=== PATIENT | male | born 1985 | race Caucasian/White ===

== ENCOUNTER 2018-03-02 11:51 | Emergency (ER) | payer BC ==
[2018-03-02] MEDS ORDERED: NA CHLORIDE 0.9% 1,000 ML ONE (12:48)
[2018-03-02] MEDS ORDERED: MORPHINE 4 MG/ML SYR ONE ×2 (12:48→14:26)
[2018-03-02] MEDS ORDERED: ONDANSETRON 4 MG/2 ML VIAL ONE (12:48)
[2018-03-02 12:56] LABS: Absolute Lymphocytes (CBC) 0.9 K/uL (0.7-4.9); Absolute Monocytes 1.2 K/uL (0.1-1.3); Absolute Neutrophil 15.1 K/uL (1.8-8.0); Basophils % 0.1 % (0-1.3); Hematocrit 44.9 % (39.6-49.0); Lymphocytes % 5.3 % (15.3-44.8); MPV 8.6 fL (7.6-11.3); Monocytes % 6.7 % (3.3-12.3); RBC Red Blood Cell Count 5.36 M/uL (4.33-5.43)
[2018-03-02 13:00] LABS: Protime INR 1.07
--- NOTE | 2018-03-02 13:16 | RAD REPORT ---
EXAM DESCRIPTION: Rustam Lawson (2 Views)03/02/2018 1:10 pm CLINICAL HISTORY: Cough COMPARISON: None FINDINGS: The lungs appear clear of acute infiltrate. The heart is normal size IMPRESSION: No acute abnormalities displayed
[2018-03-02 13:21] LABS: ALT/SGPT 70 U/L (12-78); AST/SGOT 32 U/L (15-37); Albumin 4.2 g/dL (3.4-5.0); Alkaline Phosphatase 78 U/L (45-117); BUN Blood Urea Nitrogen 11 mg/dL (7-18); Bicarbonate 27 mmol/L (21-32); Bilirubin Direct 0.1 mg/dL (0-0.2); Bilirubin Total 0.4 mg/dL (0.2-1.0); Glucose Level 113 mg/dL (74-106); Magnesium 1.8 mg/dL (1.8-2.4); NT PRO-BNP 16 pg/mL (<125); Potassium 4.4 mmol/L (3.5-5.1); Protein, Total 7.4 g/dL (6.4-8.2); Sodium Level 140 mmol/L (136-145); Troponin (Emerg Dept Use Only) < 0.02 ng/mL (0.0-0.045)
--- NOTE | 2018-03-02 15:28 | EDPHYS ---
Physician Documentation [facility] Name: Leroy Andersen Age: 32 yrs Sex: Male : 1985 Arrival Date: 03/02/2018 Time: 11:54 Bed 23 Private MD: ED Physician Sang Brock HPI: 03/02 13:00 This 32 yrs old Male presents to ER via Ambulatory with complaints of Chest pm1 Pain. 13:00 The patient or guardian reports chest pain that is located primarily in the anterior pm1 chest wall, bilaterally. The pain does not radiate. 13:00 Associated signs and symptoms: Pertinent negatives: abdominal pain, headache, shortness pm1 of breath. The chest pain is described as burning. Duration: The patient or guardian reports a single episode. Modifying factors: The symptoms are alleviated by nothing. the symptoms are aggravated by nothing. The patient has not experienced similar symptoms in the past. The patient has been recently seen by a physician: Dr. Cerna - pain management. Patient was under general anesthesia and was prone getting injections to his back by Dr. Addison. They told him that he vomited twice and they were concerned that he might have aspirated his vomit. Was given breathing treatment and Toradol in recovery. Historical: - Allergies: 12:15 No Known Allergies; hj - Home Meds: 12:15 hydrocodone-acetaminophen 2.5-500 mg Oral tab 1 tab every 4-6 hours [Active]; Flexeril hj Oral [Active]; - PMHx: 12:15 Back pain; hj - PSHx: 12:15 Knee surgery; hj - Immunization history:: Adult Immunizations up to date. - Social history:: Smoking status: Patient/guardian denies using tobacco, Patient/guardian denies using alcohol. - Ebola Screening: : Patient negative for fever greater than or equal to 101.5 degrees Fahrenheit, and additional compatible Ebola Virus Disease symptoms Patient denies exposure to infectious person Patient denies travel to an Ebola-affected area in the 21 days before illness onset. ROS: 13:00 Constitutional: Negative for fever, chills, and weight loss, Eyes: Negative for injury, pm1 pain, redness, and discharge, ENT: Negative for injury, pain, and discharge, Neck: Negative for injury, pain, and swelling. 13:00 Respiratory: Negative for shortness of breath, cough, wheezing, and pleuritic chest pain, Abdomen/GI: Negative for abdominal pain, nausea, vomiting, diarrhea, and constipation, Back: Negative for injury and pain, : Negative for injury, bleeding, discharge, and swelling, MS/Extremity: Negative for injury and deformity, Skin: Negative for injury, rash, and discoloration, Neuro: Negative for headache, weakness, numbness, tingling, and seizure. 13:00 Cardiovascular: Positive for chest pain, Negative for edema, palpitations. Exam: 13:00 Constitutional: This is a well developed, well nourished patient who is awake, alert, pm1 and in no acute distress. Head/Face: Normocephalic, atraumatic. Eyes: Pupils equal round and reactive to light, extra-ocular motions intact. Lids and lashes normal. Conjunctiva and sclera are non-icteric and not injected. Cornea within normal limits. Periorbital areas with no swelling, redness, or edema. ENT: Nares patent. No nasal discharge, no septal abnormalities noted. Tympanic membranes are normal and external auditory canals are clear. Oropharynx with no redness, swelling, or masses, exudates, or evidence of obstruction, uvula midline. Mucous membranes moist. Neck: Trachea midline, no thyromegaly or masses palpated, and no cervical lymphadenopathy. Supple, full range of motion without nuchal rigidity, or vertebral point tenderness. No Meningismus. Chest/axilla: Normal chest wall appearance and motion. Nontender with no deformity. No lesions are appreciated. Cardiovascular: Regular rate and rhythm with a normal S1 and S2. No gallops, murmurs, or rubs. Normal PMI, no JVD. No pulse deficits. Respiratory: Lungs have equal breath sounds bilaterally, clear to auscultation and percussion. No rales, rhonchi or wheezes noted. No increased work of breathing, no retractions or nasal flaring. Abdomen/GI: Soft, non-tender, with normal bowel sounds. No distension or tympany. No guarding or rebound. No evidence of tenderness throughout. Back: No spinal tenderness. No costovertebral tenderness. Full range of motion. Skin: Warm, dry with normal turgor. Normal color with no rashes, no lesions, and no evidence of cellulitis. 13:00 MS/ Extremity: Pulses equal, no cyanosis. Neurovascular intact. Full, normal range of motion. 13:00 Neuro: Orientation: is normal, Motor: is normal, moves all fours. Vital Signs: 12:16 BP 144 / 94; Pulse 115; Resp 18; Temp 98.5(O); Pulse Ox 99% on R/A; Weight 90.72 kg; hj Height 5 ft. 10 in. (177.80 cm); Pain 4/10; 13:10 Pain 5/10; tw2 13:16 BP 127 / 84; Pulse 88; Resp 17; Pulse Ox 95% on R/A; Pain 5/10; tw2 14:13 BP 130 / 89; Pulse 91; Resp 19; Pulse Ox 98% on R/A; tw2 15:12 BP 135 / 97; Pulse 94; Resp 18; Pulse Ox 95% on R/A; tw2 12:16 Body Mass Index 28.70 (90.72 kg, 177.80 cm) hj MDM: 12:33 Patient medically screened. pm1 15:24 ED course: Prescribed Levaquin by Dr. Cerna. pm1 15:27 Data reviewed: vital signs. Data interpreted: Pulse oximetry: on room air is 95 %. pm1 Interpretation: normal. Counseling: I had a detailed discussion with the patient and/or guardian regarding: the historical points, exam findings, and any diagnostic results supporting the discharge/admit diagnosis, lab results, radiology results, the need for outpatient follow up, to return to the emergency department if symptoms worsen or persist or if there are any questions or concerns that arise at home. 03/02 12:32 Order name: Basic Metabolic Panel; Complete Time: 13:33 pm1 03/02 12:32 Order name: CBC with Diff; Complete Time: 13:18 pm1 03/02 12:32 Order name: LFT's; Complete Time: 13:33 pm1 03/02 12:32 Order name: Magnesium; Complete Time: 13:33 pm03/02 12:32 Order name: NT PRO-BNP; Complete Time: 13:33 pm1 03/02 12:32 Order name: PT-INR; Complete Time: 13:18 pm03/02 12:32 Order name: Chest Pa And Lat (2 Views) XRAY; Complete Time: 13:18 pm03/02 12:32 Order name: Troponin (emerg Dept Use Only); Complete Time: 13:33 pm03/02 12:35 Order name: Blood Culture Adult (2) pm1 03/02 11:59 Order name: EKG; Complete Time: 12:00 hj 03/02 12:32 Order name: Cardiac monitoring; Complete Time: 13:16 pm03/02 12:32 Order name: EKG - Nurse/Tech; Complete Time: 13:16 pm03/02 12:32 Order name: IV Saline Lock; Complete Time: 13:16 pm03/02 12:32 Order name: Labs collected and sent; Complete Time: 13:16 pm03/02 12:32 Order name: O2 Per Protocol; Complete Time: 13:16 pm03/02 12:32 Order name: O2 Sat Monitoring; Complete Time: 13:16 pm1 Administered Medications: 12:35 Drug: Zofran 4 mg Route: IVP; Site: left antecubital; tw2 14:39 Follow up: Response: No adverse reaction tw2 12:35 Drug: NS 0.9% 1000 ml Route: IV; Rate: 1000 ml; Site: left antecubital; tw2 14:39 Follow up: Response: No adverse reaction; IV Status: Completed infusion; IV Intake: tw2 1000ml 12:37 Drug: morphine 4 mg Route: IVP; Site: left antecubital; tw2 13:10 Follow up: Pain 5/10 Adult; Response: No adverse reaction; Pain is decreased tw2 14:20 Drug: morphine 4 mg Route: IVP; Site: left antecubital; tw2 15:00 Follow up: Response: No adverse reaction; Pain is decreased tw2 Disposition: 03/02/18 15:28 Discharged to Home. Impression: Chest pain, unspecified. - Condition is Stable. - Discharge Instructions: Nonspecific Chest Pain. - Medication Reconciliation Form, Thank You Letter, Antibiotic Education, Prescription Opioid Use, Work release form form. - Follow up: Emergency Department; When: As needed; Reason: Worsening of condition. Follow up: Private Physician; When: 2 - 3 days; Reason: Recheck today's complaints, Continuance of care, Re-evaluation by your physician. - Problem is new. - Symptoms have improved. Addendum: 03/15/2018 07:30 Co-signature as Attending Physician, Sang Brock MD I agree with the assessment and k dr plan of care. Signatures: Dispatcher [employer] [facility] Sang Brock MD MD [facility] Luan Parker, RN RN hj Ezequiel De Luna, ROLLER PRINTER ROLLER PRINTER pm1 Jeri Rivas RN RN tw2 Corrections: (The following items were deleted from the chart) 03/02 12:53 12:17 Chest Single View+RAD.RAD.BRZ ordered. [facility] EDMN 12:54 12:33 Chest Single View+RAD.RAD.BRZ ordered. [facility] EDMN 15:36 15:28 03/02/2018 15:28 Discharged to Home. Impression: Chest pain, unspecified. tw2 Condition is Stable. Forms are Work release form, Medication Reconciliation Form, Thank You Letter, Antibiotic Education, Prescription Opioid Use. Follow up: Emergency Department; When: As needed; Reason: Worsening of condition. Follow up: Private Physician; When: 2 - 3 days; Reason: Recheck today's complaints, Continuance of care, Re-evaluation by your physician. Problem is new. Symptoms have improved. pm1
--- NOTE | 2018-03-02 15:28 | ER ---
Nurse's Notes [facility] Name: Leroy Andersen Age: 32 yrs Sex: Male : 1985 Arrival Date: 03/02/2018 Time: 11:54 Bed 23 Private MD: Diagnosis: Chest pain, unspecified Presentation: 03/02 12:12 Presenting complaint: Patient states: went to Dr. Addison pain doctor and put me to sleep for back injection, they told me i vomited x 2 and aspirated on my vomit; and now my chest cavity is aching; they sent me here for chest xray; felt like my breathing is wheezy;. Transition of care: patient was not received from another setting of care. Onset of symptoms was March 02, 2018. Risk Assessment: Do you want to hurt yourself or someone else? Patient reports no desire to harm self or others. Initial Sepsis Screen: Does the patient meet any 2 criteria? No. Patient's initial sepsis screen is negative. Does the patient have a suspected source of infection? No. Patient's initial sepsis screen is negative. Care prior to arrival: None. 12:12 Method Of Arrival: Ambulatory 12:12 Acuity: CHERYL 3 Triage Assessment: 12:15 General: Appears in no apparent distress. uncomfortable, Behavior is calm, cooperative, hj appropriate for age. Pain:. Cardiovascular: Capillary refill < 3 seconds Patient's skin is warm and dry. Historical: - Allergies: 12:15 No Known Allergies; hj - Home Meds: 12:15 hydrocodone-acetaminophen 2.5-500 mg Oral tab 1 tab every 4-6 hours [Active]; Flexeril hj Oral [Active]; - PMHx: 12:15 Back pain; hj - PSHx: 12:15 Knee surgery; hj - Immunization history:: Adult Immunizations up to date. - Social history:: Smoking status: Patient/guardian denies using tobacco, Patient/guardian denies using alcohol. - Ebola Screening: : Patient negative for fever greater than or equal to 101.5 degrees Fahrenheit, and additional compatible Ebola Virus Disease symptoms Patient denies exposure to infectious person Patient denies travel to an Ebola-affected area in the 21 days before illness onset. Screenin:16 Abuse screen: Denies threats or abuse. Denies injuries from another. Nutritional hj screening: No deficits noted. Tuberculosis screening: No symptoms or risk factors identified. Fall Risk None identified. Assessment: 12:16 Pain: Pain does not radiate. Pain began suddenly. hj 12:22 General: Appears in no apparent distress. Behavior is calm, cooperative, appropriate tw2 for age. Pain: Complains of pain in chest. Neuro: Level of Consciousness is awake, alert, obeys commands, Oriented to person, place, time, situation. Cardiovascular: Reports None Denies shortness of breath, Heart tones S1 S2 Patient's skin is warm and dry. Respiratory: Reports aspirating after an injection procedure where they put him to sleep in order to inject him for pain, he woke up choking, they gave him a breathing treatment and toradol for pain in the iv but the pain is still there. Respiratory: Airway is patent Respiratory effort is even, unlabored, Respiratory pattern is regular, symmetrical, Breath sounds are clear bilaterally. GI: No signs and/or symptoms were reported involving the gastrointestinal system. : No signs and/or symptoms were reported regarding the genitourinary system. EENT: No signs and/or symptoms were reported regarding the EENT system. Derm: No signs and/or symptoms reported regarding the dermatologic system. Skin is intact, is healthy with good turgor, Skin is pink, warm \T\ dry. Skin temperature is warm. Musculoskeletal: Range of motion: intact in all extremities. 13:16 Reassessment: Patient appears in no apparent distress at this time. No changes from tw2 previously documented assessment. Patient and/or family updated on plan of care and expected duration. Pain level reassessed. Patient is alert, oriented x 3, equal unlabored respirations, skin warm/dry/pink. 14:14 Reassessment: Patient appears in no apparent distress at this time. No changes from tw2 previously documented assessment. Patient and/or family updated on plan of care and expected duration. Pain level reassessed. Patient is alert, oriented x 3, equal unlabored respirations, skin warm/dry/pink. 15:13 Reassessment: Patient appears in no apparent distress at this time. No changes from tw2 previously documented assessment. Patient and/or family updated on plan of care and expected duration. Pain level reassessed. Patient is alert, oriented x 3, equal unlabored respirations, skin warm/dry/pink. 15:34 Reassessment: Patient appears in no apparent distress at this time. No changes from tw2 previously documented assessment. Patient and/or family updated on plan of care and expected duration. Pain level reassessed. Patient is alert, oriented x 3, equal unlabored respirations, skin warm/dry/pink. Vital Signs: 12:16 BP 144 / 94; Pulse 115; Resp 18; Temp 98.5(O); Pulse Ox 99% on R/A; Weight 90.72 kg; hj Height 5 ft. 10 in. (177.80 cm); Pain 4/10; 13:10 Pain 5/10; tw2 13:16 BP 127 / 84; Pulse 88; Resp 17; Pulse Ox 95% on R/A; Pain 5/10; tw2 14:13 BP 130 / 89; Pulse 91; Resp 19; Pulse Ox 98% on R/A; tw2 15:12 BP 135 / 97; Pulse 94; Resp 18; Pulse Ox 95% on R/A; tw2 12:16 Body Mass Index 28.70 (90.72 kg, 177.80 cm) ED Course: 11:54 Patient arrived in ED. mr 12:03 EKG done, by technology consultant. reviewed by Sang Brock MD. at1 12:14 Triage completed. hj 12:16 Arm band placed on right wrist. hj 12:16 Patient has correct armband on for positive identification. Placed in gown. Bed in low hj position. Call light in reach. Side rails up X 1. 12:16 environmental field office manager on. Pulse ox on. NIBP on. hj 12:16 Patient maintains SpO2 saturation greater than 95% on room air. hj 12:26 Ezequiel De Luna, CRISTAL is PHCP. pm1 12:26 Sang Brock MD is Attending Physician. pm1 12:36 Inserted saline lock: 20 gauge in right antecubital area, using aseptic technique. tw2 Blood collected. 12:56 Jeri Rivas, XOCHILT is Primary Nurse. tw2 13:00 Patient moved to radiology via wheelchair. jb2 13:07 X-ray completed. Patient tolerated procedure well. Patient moved back from radiology. jb2 13:07 Chest Pa And Lat (2 Views) XRAY In Process Unspecified. EDMS 13:16 Blood Culture Adult (2) Sent. tw2 15:34 No provider procedures requiring assistance completed. IV discontinued, intact, tw2 bleeding controlled, No redness/swelling at site. Pressure dressing applied. Administered Medications: 12:35 Drug: Zofran 4 mg Route: IVP; Site: left antecubital; tw2 14:39 Follow up: Response: No adverse reaction tw2 12:35 Drug: NS 0.9% 1000 ml Route: IV; Rate: 1000 ml; Site: left antecubital; tw2 14:39 Follow up: Response: No adverse reaction; IV Status: Completed infusion; IV Intake: tw2 1000ml 12:37 Drug: morphine 4 mg Route: IVP; Site: left antecubital; tw2 13:10 Follow up: Pain 5/10 Adult; Response: No adverse reaction; Pain is decreased tw2 14:20 Drug: morphine 4 mg Route: IVP; Site: left antecubital; tw2 15:00 Follow up: Response: No adverse reaction; Pain is decreased tw2 Intake: 14:39 IV: 1000ml; Total: 1000ml. tw2 Outcome: 15:28 Discharge ordered by . pm1 15:35 Discharged to home ambulatory, with significant other. tw2 15:35 Condition: stable 15:35 Discharge instructions given to patient, significant other, Instructed on discharge instructions, follow up and referral plans. Demonstrated understanding of instructions, follow-up care. 15:36 Patient left the ED. tw2 Signatures: Dispatcher [employer] [facility] Berenice Lopez, Kwesi jb2 Alicia Villaseñor, convalescent sitter EKG Tat1 Luan Parker, Ezequiel Velez RN, NP ENDOCRINOLOGY SPECIALIST pm1 Jeri Rivas RN RN tw2
--- NOTE | 2018-03-03 13:58 | EKG ---
Test Date: 2018-03-02 Test Time: 12:03:59 Benefits Specialist Recruiter: AP MEASUREMENT RESULTS: Intervals: Rate: 114 OH: 124 QRSD: 86 QT: 324 QTc: 446 [place]: P: 29 OH: 124 QRS: 63 T: 30 INTERPRETIVE STATEMENTS: Sinus tachycardia Otherwise normal ECG No previous ECG available for comparison Electronically Signed On 03-03-18 13:54:16 OPTICAL SCIENTIST by Royer Quarles
== END 2018-03-02 15:36 | disposition home or self-care (01) ==
LOC: ER 11:51
DX: R07.9 Chest pain, unspecified (principal)
CPT/HCPCS: 36415; 71046; 80048; 80076; 83735; 83880; 84484; 85025; 85610; 87040; 93005; 96361; 96374; 96375; 99285; J2405; J7030

== ENCOUNTER 2018-11-15 07:27 | Emergency (ER) | payer BC, OTHER ==
[2018-11-15] MEDS ORDERED: ONDANSETRON 4 MG/2 ML VIAL ONE (07:59)
[2018-11-15] MEDS ORDERED: NA CHLORIDE 0.9% 1,000 ML ONE (07:59)
[2018-11-15] MEDS ORDERED: MORPHINE 4 MG/ML SYR ONE (07:59)
[2018-11-15] MEDS ORDERED: FAMOTIDINE 20 MG/2 ML VIAL IV ONE (08:00)
[2018-11-15 08:05] LABS: Absolute Lymphocytes (CBC) 3.1 K/uL (0.7-4.9); Basophils % 0.5 % (0-1.3); Hematocrit 41.7 % (39.6-49.0); Lymphocytes % 40.3 % (15.3-44.8); MPV 8.7 fL (7.6-11.3); RBC Red Blood Cell Count 5.01 M/uL (4.33-5.43)
--- NOTE | 2018-11-15 08:19 | RAD REPORT ---
EXAM DESCRIPTION: US - Abdomen Exam Limited - 11/15/2018 8:07 am CLINICAL HISTORY: ABD PAIN COMPARISON: No comparisons FINDINGS: The gallbladder demonstrates no gallstones. No pericholecystic fluid or gallbladder wall t hickening. The common bile duct is normal measuring 3 mm. The liver demonstrates no findings of intrahepatic biliary dilatation. IMPRESSION: Unremarkable examination.
[2018-11-15 08:25] LABS: ALT/SGPT 63 U/L (12-78); AST/SGOT 31 U/L (15-37); Albumin 4.1 g/dL (3.4-5.0); Alkaline Phosphatase 77 U/L (45-117); BUN Blood Urea Nitrogen 15 mg/dL (7-18); Bicarbonate 23 mmol/L (21-32); Bilirubin Direct < 0.1 mg/dL (0-0.2); Bilirubin Total 0.2 mg/dL (0.2-1.0); Glucose Level 146 mg/dL (74-106); Lipase 313 U/L (73-393); Potassium 3.7 mmol/L (3.5-5.1); Protein, Total 7.5 g/dL (6.4-8.2); Sodium Level 142 mmol/L (136-145)
--- NOTE | 2018-11-15 09:16 | RAD REPORT ---
EXAM DESCRIPTION: CTAbdomen Pelvis W Contrast - 11/15/2018 8:58 am CLINICAL HISTORY: Abdominal pain. ABD PAIN COMPARISON: Abdomen Exam Limited dated 11/15/2018 TECHNIQUE: Biphasic CT imaging of the abdomen and pelvis was performed with 100 ml non-ionic IV cont rast. All CT scans are performed using dose optimization technique as appropriate and may include automated exposure control or mA/KV adjustment according to patient size. FINDINGS: The lung bases are clear. The liver demonstrates diffuse fatty infiltration. The spleen, pancreas, adrenal glands and kidneys a re within normal limits. No bowel obstruction, free air, free fluid or abscess. The appendix is normal. No evidence of signi ficant lymphadenopathy. No suspicious bony findings. IMPRESSION: No acute intra-abdominal or pelvic finding.
[2018-11-15] MEDS ORDERED: KETOROLAC 30 MG/ML INJ ONE (09:58)
--- NOTE | 2018-11-15 11:06 | ER ---
Nurse's Notes [facility] Name: Leroy Andersen Age: 32 yrs Sex: Male : 1985 Arrival Date: 11/15/2018 Time: 07:29 Bed 5 Private MD: Diagnosis: Abdominal and pelvic pain;Upper abdominal pain, unspecified Presentation: 11/15 07:39 Presenting complaint: Patient states: RUQ pain for a few days, +diarrhea. Transition of iw care: patient was not received from another setting of care. Onset of symptoms was November 12, 2018. Risk Assessment: Do you want to hurt yourself or someone else? Patient reports no desire to harm self or others. Initial Sepsis Screen: Does the patient meet any 2 criteria? No. Patient's initial sepsis screen is negative. Does the patient have a suspected source of infection? No. Patient's initial sepsis screen is negative. Care prior to arrival: None. 07:39 Method Of Arrival: Ambulatory iw 07:39 Acuity: CHERYL 3 iw Historical: - Allergies: 07:43 No Known Allergies; iw - Home Meds: 07:43 hydrocodone-acetaminophen 2.5-500 mg Oral tab 1 tab every 4-6 hours [Active]; iw tizanidine oral oral [Active]; meloxicam oral oral [Active]; - PMHx: 07:43 Back pain; Degenerative disc disease; iw - PSHx: 07:43 Knee surgery; iw - Immunization history:: Adult Immunizations up to date. - Social history:: Smoking status: Patient/guardian denies using tobacco. - Ebola Screening: : Patient negative for fever greater than or equal to 101.5 degrees Fahrenheit, and additional compatible Ebola Virus Disease symptoms Patient denies exposure to infectious person Patient denies travel to an Ebola-affected area in the 21 days before illness onset No symptoms or risks identified at this time. Screenin:50 Abuse screen: Denies threats or abuse. Denies injuries from another. Nutritional sg screening: No deficits noted. Tuberculosis screening: No symptoms or risk factors identified. Never had TB. Fall Risk None identified. Assessment: 07:50 General: Appears well groomed, well developed, well nourished, Behavior is calm, sg cooperative, appropriate for age. Pain: Complains of pain in right lower quadrant and right upper quadrant Quality of pain is described as aching, tender. Neuro: Level of Consciousness is awake, alert, obeys commands, Oriented to person, place, time, Plastic Press Operator are equal bilaterally Moves all extremities. Full function Gait is steady, Speech is normal, Facial symmetry appears normal, Pupils are PERRLA. Cardiovascular: Heart tones S1 S2 present Patient's skin is warm and dry. Chest pain is denied. Respiratory: Airway is patent Respiratory effort is even, unlabored, Respiratory pattern is regular, symmetrical, Denies cough, shortness of breath labored breathing, pain with respiration. GI: Abdomen is round non-distended, Bowel sounds present X 4 quads. Abd is soft X 4 quads Abdomen is tender to palpation in right upper quadrant and right lower quadrant. GI: Reports lower abdominal pain, upper abdominal pain, diarrhea, bloody stool, nausea. : No signs and/or symptoms were reported regarding the genitourinary system. EENT: No signs and/or symptoms were reported regarding the EENT system. Derm: Skin is pink, warm \T\ dry. Musculoskeletal: Circulation, motion, and sensation intact. Range of motion: intact in all extremities, Swelling absent. Vital Signs: 07:43 BP 156 / 110; Pulse 103; Resp 18; Temp 97.7(TE); Pulse Ox 98% on R/A; Weight 90.72 kg; iw Height 5 ft. 10 in. (177.80 cm); Pain 5/10; 08:57 BP 174 / 117; Pulse 89; Resp 17; Pulse Ox 98% ; sv 09:30 BP 146 / 103; Pulse 94; Resp 16; Pulse Ox 98% ; sv 10:17 BP 144 / 104; Pulse 80; Resp 14; Pulse Ox 98% ; sv 07:43 Body Mass Index 28.70 (90.72 kg, 177.80 cm) iw ED Course: 07:28 Sang Brock MD is Attending Physician. kdr 07:29 Patient arrived in ED. am2 07:40 Triage completed. iw 07:46 Arm band placed on. iw 07:51 Initial lab(s) drawn, by me, sent to lab. Inserted saline lock: 20 gauge in right sg antecubital area, using aseptic technique. Blood collected. 07:56 Juan White, RN is Primary Nurse. sg 08:03 US Abdomen Limited In Process Unspecified. EDMS 08:59 CT Abd/Pelvis - IV Contrast Only In Process Unspecified. EDMS 11:20 No provider procedures requiring assistance completed. IV discontinued, intact, iw bleeding controlled, No redness/swelling at site. Pressure dressing applied. 11:21 Patient has correct armband on for positive identification. iw Administered Medications: 08:10 Drug: NS 0.9% 1000 ml Route: IV; Rate: 1 bolus; Site: right antecubital; sg 10:15 Follow up: Response: No adverse reaction; IV Status: Completed infusion; IV Intake: sg 1000ml 08:10 Drug: Zofran 4 mg Route: IVP; Site: right antecubital; sg 09:00 Follow up: Response: No adverse reaction; Nausea is decreased sg 08:10 Drug: Pepcid 20 mg Route: IVP; Site: right antecubital; sg 09:00 Follow up: Response: No adverse reaction sg 08:10 Drug: morphine 4 mg {Note: RASS +1.} Route: IVP; Site: right antecubital; sg 09:00 Follow up: Response: No adverse reaction; Pain is unchanged, physician notified; RASS: sg Alert and Calm (0) 10:10 Drug: TORadol - Ketorolac 15 mg Route: IVP; Site: right antecubital; sg 11:00 Follow up: Response: No adverse reaction; Pain is decreased sg Intake: 10:15 IV: 1000ml; Total: 1000ml. sg Outcome: 10:57 Discharge ordered by . kdr 11:20 Discharged to home ambulatory. iw 11:20 Condition: good 11:20 Discharge instructions given to patient, Instructed on discharge instructions, follow up and referral plans. medication usage, Demonstrated understanding of instructions, follow-up care, medications, Prescriptions given X 1. 11:21 Patient left the ED. iw Signatures: Dispatcher [employer] EDMS Katerine Bar RN RN sv Gay, Steven, RN RN sg Rittger, Kevin, MD MD kdr Williams, Irene, RN RN iw Moreno, Amanda am2 Corrections: (The following items were deleted from the chart) 07:47 07:43 Pulse 103bpm; Resp 18bpm; Pulse Ox 98% RA; Temp 97.7F Temporal; 90.72 kg; Height iw 5 ft. 10 in.; BMI: 28.7; Pain 5/10; iw
--- NOTE | 2018-11-15 11:07 | EDPHYS ---
Physician Documentation [facility] Name: Leroy Andersen Age: 32 yrs Sex: Male : 1985 Arrival Date: 11/15/2018 Time: 07:29 Bed 5 Private MD: ED Physician Sang Brock HPI: 11/15 07:45 This 32 yrs old Male presents to ER via Ambulatory with complaints of kdr Abdominal Pain. 07:45 The patient presents with abdominal pain in the right upper quadrant. Onset: The kdr symptoms/episode began/occurred gradually, 3 day(s) ago. The symptoms radiate to the right shoulder, right scapular area. Associated signs and symptoms: Pertinent positives:. The symptoms are described as achy. Modifying factors: The symptoms are alleviated by nothing, the symptoms are aggravated by breathing deeply, movement, pressure, walking. Severity of pain: At its worst the pain was mild moderate just prior to arrival, in the emergency department the pain is unchanged. The patient has not experienced similar symptoms in the past. The patient has not recently seen a physician. Historical: - Allergies: 07:43 No Known Allergies; iw - Home Meds: 07:43 hydrocodone-acetaminophen 2.5-500 mg Oral tab 1 tab every 4-6 hours [Active]; iw tizanidine oral oral [Active]; meloxicam oral oral [Active]; - PMHx: 07:43 Back pain; Degenerative disc disease; iw - PSHx: 07:43 Knee surgery; iw - Immunization history:: Adult Immunizations up to date. - Social history:: Smoking status: Patient/guardian denies using tobacco. - Ebola Screening: : Patient negative for fever greater than or equal to 101.5 degrees Fahrenheit, and additional compatible Ebola Virus Disease symptoms Patient denies exposure to infectious person Patient denies travel to an Ebola-affected area in the 21 days before illness onset No symptoms or risks identified at this time. ROS: 07:45 Constitutional: Negative for fever, chills, and weight loss, Eyes: Negative for injury, kdr pain, redness, and discharge, ENT: Negative for injury, pain, and discharge, Neck: Negative for injury, pain, and swelling, Cardiovascular: Negative for chest pain, palpitations, and edema, Respiratory: Negative for shortness of breath, cough, wheezing, and pleuritic chest pain, Back: Negative for injury and pain, : Negative for injury, bleeding, discharge, and swelling, MS/Extremity: Negative for injury and deformity, Skin: Negative for injury, rash, and discoloration, Neuro: Negative for headache, weakness, numbness, tingling, and seizure activity. Psych: Negative for depression, anxiety, suicide ideation, homicidal ideation, and hallucinations, Allergy/Immunology: Negative for hives, rash, and allergies, Endocrine: Negative for neck swelling, polydipsia, polyuria, polyphagia, and marked weight changes, Hematologic/Lymphatic: Negative for swollen nodes, abnormal bleeding, and unusual bruising. 07:45 Abdomen/GI: Positive for abdominal pain, nausea, rectal bleeding, Negative for black/tarry stool, bowel incontinence. Exam: 07:45 Constitutional: This is a well developed, well nourished patient who is awake, alert, kdr and in no acute distress. Head/Face: Normocephalic, atraumatic. Eyes: Pupils equal round and reactive to light, extra-ocular motions intact. Lids and lashes normal. Conjunctiva and sclera are non-icteric and not injected. Cornea within normal limits. Periorbital areas with no swelling, redness, or edema. Neck: Trachea midline, no thyromegaly or masses palpated, and no cervical lymphadenopathy. Supple, full range of motion without nuchal rigidity, or vertebral point tenderness. No Meningismus. Chest/axilla: Normal chest wall appearance and motion. Nontender with no deformity. No lesions are appreciated. Cardiovascular: Regular rate and rhythm with a normal S1 and S2. No gallops, murmurs, or rubs. Normal PMI, no JVD. No pulse deficits. Respiratory: Lungs have equal breath sounds bilaterally, clear to auscultation and percussion. No rales, rhonchi or wheezes noted. No increased work of breathing, no retractions or nasal flaring. Back: No spinal tenderness. No costovertebral tenderness. Full range of motion. Skin: Warm, dry with normal turgor. Normal color with no rashes, no lesions, and no evidence of cellulitis. MS/ Extremity: Pulses equal, no cyanosis. Neurovascular intact. Full, normal range of motion. Neuro: Awake and alert, GCS 15, oriented to person, place, time, and situation. Cranial nerves II-XII grossly intact. Motor strength 5/5 in all extremities. Sensory grossly intact. Cerebellar exam normal. Normal gait. Psych: Awake, alert, with orientation to person, place and time. Behavior, mood, and affect are within normal limits. 07:45 Abdomen/GI: Inspection: abdomen appears normal, Bowel sounds: active, diminished, in all quadrants, Palpation: moderate abdominal tenderness, in all quadrants, voluntary guarding, is elicited in the right upper quadrant, Indicators: McBurney's point is not tender, Pimentel's sign is positive, Rovsing's sign is negative, Obturator sign is negative, Psoas sign is negative. Vital Signs: 07:43 BP 156 / 110; Pulse 103; Resp 18; Temp 97.7(TE); Pulse Ox 98% on R/A; Weight 90.72 kg; iw Height 5 ft. 10 in. (177.80 cm); Pain 5/10; 08:57 BP 174 / 117; Pulse 89; Resp 17; Pulse Ox 98% ; sv 09:30 BP 146 / 103; Pulse 94; Resp 16; Pulse Ox 98% ; sv 10:17 BP 144 / 104; Pulse 80; Resp 14; Pulse Ox 98% ; sv 07:43 Body Mass Index 28.70 (90.72 kg, 177.80 cm) iw MDM: 10:57 Patient medically screened. kdr 11:00 Data reviewed: vital signs, nurses notes, lab test result(s), radiologic studies. kdr Counseling: I had a detailed discussion with the patient and/or guardian regarding: the historical points, exam findings, and any diagnostic results supporting the discharge/admit diagnosis, lab results, radiology results, the need for outpatient follow up. ED course: Pain was slightly improved but not resolved - still 5/10. The patient does not appear toxic or in any way acutely ill. His abdomen appears to still be tender in the RUQ. Given the length of time the patient has been experiencing these s/s, I would expect some aspect of the an underlying occult illness such as ischemic bowel or other similar problem to be evident in both lab abnormalities and CT findings. 11/15 07:42 Order name: Basic Metabolic Panel; Complete Time: 08:44 kdr 11/15 07:42 Order name: CBC with Diff; Complete Time: 08:44 kdr 11/15 07:42 Order name: Creatinine for Radiology; Complete Time: 08:44 kdr 11/15 07:42 Order name: Hepatic Function; Complete Time: 08:44 kdr 11/15 07:42 Order name: Lipase; Complete Time: 08:44 kdr 11/15 07:42 Order name: CT Abd/Pelvis - IV Contrast Only; Complete Time: 10:25 kdr 11/15 07:42 Order name: IV Saline Lock; Complete Time: 07:56 kdr 11/15 07:42 Order name: Labs collected and sent; Complete Time: 07:56 kdr 11/15 07:44 Order name: US Abdomen Limited; Complete Time: 08:44 kdr Administered Medications: 08:10 Drug: NS 0.9% 1000 ml Route: IV; Rate: 1 bolus; Site: right antecubital; sg 10:15 Follow up: Response: No adverse reaction; IV Status: Completed infusion; IV Intake: sg 1000ml 08:10 Drug: Zofran 4 mg Route: IVP; Site: right antecubital; sg 09:00 Follow up: Response: No adverse reaction; Nausea is decreased sg 08:10 Drug: Pepcid 20 mg Route: IVP; Site: right antecubital; sg 09:00 Follow up: Response: No adverse reaction sg 08:10 Drug: morphine 4 mg {Note: RASS +1.} Route: IVP; Site: right antecubital; sg 09:00 Follow up: Response: No adverse reaction; Pain is unchanged, physician notified; RASS: sg Alert and Calm (0) 10:10 Drug: TORadol - Ketorolac 15 mg Route: IVP; Site: right antecubital; sg 11:00 Follow up: Response: No adverse reaction; Pain is decreased sg Disposition: 11/15/18 10:57 Discharged to Home. Impression: Abdominal and pelvic pain, Upper abdominal pain, unspecified. - Condition is Stable. - Discharge Instructions: Abdominal Pain, Adult, [id number]. - Prescriptions for Bentyl 20 mg Oral Tablet - take 1 tablet by ORAL route every 6 hours As needed; 20 tablet. - Work release form, Medication Reconciliation Form, Thank You Letter form. - Follow up: Private Physician; When: 2 - 3 days; Reason: If symptoms return, Further diagnostic work-up, Recheck today's complaints, Continuance of care, Re-evaluation by your physician. - Problem is new. - Symptoms have improved. Signatures: Dispatcher [employer] EDMS Juan White, XOCHILT RN Sang Brock MD MD [facility] Stephanie Taylor RN RN iw Corrections: (The following items were deleted from the chart) 11:21 10:57 11/15/2018 10:57 Discharged to Home. Impression: Abdominal and pelvic pain; Upper iw abdominal pain, unspecified. Condition is Stable. Forms are Medication Reconciliation Form, Thank You Letter, Antibiotic Education, Prescription Opioid Use. Follow up: Private Physician; When: 2 - 3 days; Reason: If symptoms return, Further diagnostic work-up, Recheck today's complaints, Continuance of care, Re-evaluation by your physician. Problem is new. Symptoms have improved. kdr
[2018-11-15 11:30] VITALS: TEMP 97.7; O2SAT 98
[2018-11-15 11:34] VITALS: BP 144/104
== END 2018-11-15 11:21 | disposition home or self-care (01) ==
LOC: ER 07:27
DX: R10.2 Pelvic and perineal pain (principal); R10.10 Upper abdominal pain, unspecified
CPT/HCPCS: 96361; 85025; 80048; 36415; 80076; 83690; 74177; 76705; 96375; 96374; 99284; Q9967; J7030; J2405

== ENCOUNTER 2018-12-25 09:13 | Observation (INO) | payer BC, OTHER ==
[2018-12-25] MEDS ORDERED: NA CHLORIDE 0.9% 500 ML ONE (09:32)
--- NOTE | 2018-12-25 09:45 | RAD REPORT ---
EXAM DESCRIPTION: RAD - Chest Single View - 12/25/2018 9:36 am CLINICAL HISTORY: Hypertension, shortness of breath COMPARISON: February 2018 TECHNIQUE: AP portable chest image was obtained 0935 hours . FINDINGS: Lungs are clear. Heart and vasculature are normal. No measurable pleural effusion and no p neumothorax. No acute bony abnormality seen. No acute aortic findings suspected. IMPRESSION: No acute cardiopulmonary process. No significant change from comparison.
[2018-12-25 10:10] LABS: ALT/SGPT 57 U/L (12-78); AST/SGOT 25 U/L (15-37); Albumin 3.8 g/dL (3.4-5.0); Alkaline Phosphatase 84 U/L (45-117); BUN Blood Urea Nitrogen 12 mg/dL (7-18); Bicarbonate 27 mmol/L (21-32); Bilirubin Direct < 0.1 mg/dL (0-0.2); Bilirubin Total 0.3 mg/dL (0.2-1.0); Glucose Level 169 mg/dL (74-106); Magnesium 1.8 mg/dL (1.8-2.4); Potassium 3.9 mmol/L (3.5-5.1); Protein, Total 7.1 g/dL (6.4-8.2); Sodium Level 142 mmol/L (136-145); Troponin (Emerg Dept Use Only) < 0.02 ng/mL (0.0-0.045)
[2018-12-25 10:15] LABS: Absolute Lymphocytes (CBC) 2.6 K/uL (0.7-4.9); Basophils % 0.4 % (0-1.3); Lymphocytes % 40.2 % (15.3-44.8); MPV 8.8 fL (7.6-11.3); Protime INR 0.99; RBC Red Blood Cell Count 5.22 M/uL (4.33-5.43)
--- NOTE | 2018-12-25 10:16 | EKG ---
Test Date: 2018-12-25 Test Time: 09:41:20 Business Office Coordinator: AP MEASUREMENT RESULTS: Intervals: Rate: 113 MO: 130 QRSD: 86 QT: 330 QTc: 452 [place]: P: 36 MO: 130 QRS: 65 T: 21 INTERPRETIVE STATEMENTS: Sinus tachycardia Otherwise normal ECG Compared to ECG 03/02/2018 12:03:59 No significant changes Electronically Signed On 12-25-18 10:15:52 CDT by Royer Quarles
[2018-12-25] MEDS ORDERED: LISINOPRIL 20 MG TAB ONE (10:51)
[2018-12-25] MEDS ORDERED: ACETAMINOPHEN 500 MG TAB ONE (10:51)
[2018-12-25 11:01] LABS: Urine Blood NEGATIVE (NEG); Urine Glucose NEGATIVE (NEG); Urine Protein NEGATIVE (NEG); Urine Specific Gravity >1.030 (1.005-1.030); Urine pH 5.5 (5.0-7.0)
--- NOTE | 2018-12-25 11:03 | RAD REPORT ---
EXAM DESCRIPTION: CT - Head Brain Wo Cont - 12/25/2018 10:57 am CLINICAL HISTORY: HEADACHE Headache, drowsiness COMPARISON: No comparisons TECHNIQUE: All CT scans are performed using dose optimization technique as appropriate and may inclu de automated exposure control or mA/KV adjustment according to patient size. FINDINGS: No intracranial hemorrhage, hydrocephalus or extra-axial fluid collection.No areas of brai n edema or evidence of midline shift. The paranasal sinuses and mastoids are clear. The calvarium is intact. IMPRESSION: No acute intracranial abnormality.
--- NOTE | 2018-12-25 11:06 | ER ---
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 Pt c/o headache, denies nausea/vomiting. 09:17 Transition of care: patient was not received from another setting of care. Onset of aa5 symptoms was December 25, 2018. Risk Assessment: Do you want to hurt yourself or someone else? Patient reports no desire to harm self or others. Initial Sepsis Screen: Does the patient meet any 2 criteria? No. Patient's initial sepsis screen is negative. Does the patient have a suspected source of infection? No. Patient's initial sepsis screen is negative. Care prior to arrival: None. 09:17 Method Of Arrival: Ambulatory aa5 09:17 Acuity: CHEYRL 2 aa5 Historical: - Allergies: 09:20 No Known Allergies; aa5 - Home Meds: 09:20 hydrocodone-acetaminophen 2.5-500 mg Oral tab 1 tab every 4-6 hours [Active]; meloxicam aa5 Oral [Active]; tizanidine Oral [Active]; - PMHx: 09:20 Back pain; Degenerative disc disease; aa5 - PSHx: 09:20 Right Knee; aa5 - Immunization history:: Adult Immunizations up to date. - Social history:: Smoking status: Patient/guardian denies using tobacco. - Ebola Screening: : No symptoms or risks identified at this time. - Family history:: not pertinent. Screenin:23 Abuse screen: Denies threats or abuse. Nutritional screening: No deficits noted. aa5 Tuberculosis screening: No symptoms or risk factors identified. Fall Risk None identified. Assessment: 09:18 General: Appears uncomfortable, Behavior is calm, cooperative. Pain: Complains of pain aa5 in occipital area and base of the skull Pain does not radiate. Pain currently is 4 out of 10 on a pain scale. Quality of pain is described as aching, pressure, Is continuous. Neuro: Level of Consciousness is awake, alert, obeys commands, Oriented to person, place, time, situation, Box Printing Machine Operator are equal bilaterally Moves all extremities. Gait is steady, Speech is normal, Facial symmetry appears normal, Pupils are PERRLA. Cardiovascular: Heart tones S1 S2 present Rhythm is regular. Respiratory: Reports slight cough Airway is patent Respiratory effort is even, unlabored, Respiratory pattern is regular, symmetrical. GI: Patient currently denies nausea, vomiting. : No signs and/or symptoms were reported regarding the genitourinary system. EENT: No signs and/or symptoms were reported regarding the EENT system. Derm: Skin is pink, warm \\T\\ dry. Musculoskeletal: Range of motion: intact in all extremities. 10:45 Reassessment: Patient is alert, oriented x 3, equal unlabored respirations, skin aa5 warm/dry/pink. MD notified of unchanged blood pressure readings and notified that pt's symptoms have not improved. Pt c/o headache. Pt sitting up in bed. . 11:12 Reassessment: Patient is alert, oriented x 3, equal unlabored respirations, skin aa5 warm/dry/pink. Pain: Pain currently is 3 out of 10 on a pain scale. 11:30 Reassessment: discharge delayed due to awaiting physician to speak with patient ss regarding test results, plan of care and discharge instructions. 11:40 Reassessment: Dr. Flores at bedside discussing POC with patient now. ss 12:45 Reassessment: Patient is alert, oriented x 3, equal unlabored respirations, skin aa5 warm/dry/pink. Pt sitting up in bed. Pt notified of wait time for transport to Room 207. 13:30 Reassessment: Patient is alert, oriented x 3, equal unlabored respirations, skin aa5 warm/dry/pink. Vital Signs: 09:18 BP 167 / 113; Pulse 118; Resp 14 S; Temp 98.8(O); Pulse Ox 96% on R/A; Weight 90.72 kg aa5 (R); Height 5 ft. 10 in. (177.80 cm) (R); Pain 4/10; 09:45 BP 161 / 116; Pulse 113; Resp 16 S; Pulse Ox 98% on R/A; aa5 10:42 BP 153 / 107; Pulse 108; Resp 18 S; Pulse Ox 98% on R/A; aa5 11:12 BP 153 / 97; Pulse 102; Resp 16 S; Pulse Ox 98% on R/A; aa5 12:40 BP 136 / 97; Pulse 67; Resp 16 S; Pulse Ox 98% on R/A; Pain 3/10; aa5 09:18 Body Mass Index 28.70 (90.72 kg, 177.80 cm) aa5 ED Course: 09:17 Patient arrived in ED. loreta 09:17 Lino Flores MD is Attending Physician. loreta 09:18 Leena Guan, XOCHILT is Primary Nurse. aa5 09:19 Arm band placed on Patient placed in an exam room, on a stretcher. aa5 09:19 Patient has correct armband on for positive identification. Bed in low position. Call aa5 light in reach. Side rails up X2. 09:20 Triage completed. aa5 09:28 Initial lab(s) drawn, by de, sent to lab. Inserted saline lock: 20 gauge in right aa5 antecubital area, using aseptic technique. Blood collected. 09:38 XRAY Chest (1 view) In Process Unspecified. EDMS 09:44 EKG done, by turfgrass technician. reviewed by Lino Flores MD. at1 10:53 CT completed. Patient tolerated procedure well. Patient moved to CT via wheelchair. sj Patient moved back from CT. 10:57 CT Head Brain wo Cont In Process Unspecified. EDMS 11:05 Royer Quarles MD is Referral Physician. loreta 11:49 Shaina Quan MD is Hospitalizing Provider. loreta 13:25 No provider procedures requiring assistance completed. Patient admitted, IV remains in aa5 place. Administered Medications: 09:30 Drug: NS 0.9% 500 ml Route: IV; Rate: bolus; Site: right antecubital; aa5 10:00 Follow up: IV Status: Completed infusion; IV Intake: 500ml aa5 10:52 Drug: Lisinopril 20 mg Route: PO; aa5 11:45 Follow up: Response: No adverse reaction aa5 10:52 Drug: Tylenol 1000 mg Route: PO; aa5 11:45 Follow up: Response: No adverse reaction aa5 12:11 Drug: Aspirin Chewable Tablet 324 mg Route: PO; ph 12:45 Follow up: Response: No adverse reaction aa5 12:11 Drug: Lopressor 5 mg Route: IVP; Site: right antecubital; ph 12:18 Follow up: Response: No adverse reaction aa5 12:11 Drug: Lopressor 25 mg Route: PO; ph 12:45 Follow up: Response: No adverse reaction aa5 12:45 Drug: morphine 2 mg Route: IVP; Site: right antecubital; aa5 13:30 Follow up: Response: No adverse reaction; Pain is decreased aa5 12:45 Drug: Zofran 4 mg Route: IVP; Site: right antecubital; aa5 12:50 Follow up: Response: No adverse reaction aa5 Intake: 10:00 IV: 500ml; Total: 500ml. aa5 Outcome: 11:05 Discharge ordered by . loreta 11:54 Decision to Hospitalize by Provider. loreta 13:25 Admitted to Tele accompanied by tech, via wheelchair, with chart, Report called to carie Link RN 13:25 Condition: stable 13:25 Instructed on the need for admit, Demonstrated understanding of instructions. 13:31 Patient left the ED. aa5 Signatures: Dispatcher [employer] EDMS Lino Flores MD MD cha Jones, Susan sj Calderon, Audri RN RN aa5 Stephanie Stein RN RN Alicia Villaseñor, leathersmith EKG Tat1 Dinora Loco RN RN ph Corrections: (The following items were deleted from the chart) 09:20 09:17 Acuity: CHERYL 3 aa5 aa5 09:22 09:18 BP 167 / 113; aa5 aa5 09:23 09:18 BP 167 / 113; Pulse 118bpm; Resp 14bpm; Spontaneous; Pulse Ox 96% RA; 90.72 kg aa5 Reported; Height 5 ft. 10 in. Reported; BMI: 28.7; Pain 4/10; aa5 : 11:12 General: Appears uncomfortable, Behavior is calm, cooperative, aa5 aa5 : 11:12 Pain: Complains of pain in occipital area and base of the skull Pain does not aa5 radiate. Pain currently is 4 out of 10 on a pain scale. Quality of pain is described as aching, pressure, Is continuous, aa5 11:12 Neuro: Level of Consciousness is awake, alert, obeys commands, Oriented to aa5 person, place, time, situation, Box Printing Machine Operator are equal bilaterally Moves all extremities. Gait is steady, Speech is normal, Facial symmetry appears normal, Pupils are PERRLA, aa5 11:12 Cardiovascular: Heart tones S1 S2 present Rhythm is regular aa5 aa 11:12 Respiratory: Reports slight cough Airway is patent Respiratory effort is even, aa5 unlabored, Respiratory pattern is regular, symmetrical, aa5 11:12 GI: Patient currently denies nausea, vomiting, aa5 aa 11:12 : No signs and/or symptoms were reported regarding the genitourinary system. [facility] 11:12 EENT: No signs and/or symptoms were reported regarding the EENT system. aa5 aa 11:12 Derm: Skin is pink, warm \\T\\ dry. aa5 [facility] 11:12 Musculoskeletal: Range of motion: intact in all extremities, aa5 [facility] 13:31 11:50 Reassessment: Patient is alert, oriented x 3, equal unlabored respirations, skin aa5 warm/dry/pink. aa5
--- NOTE | 2018-12-25 11:07 | EDPHYS ---
Physician Documentation [facility] Name: Leroy Andersen Age: 33 yrs Sex: Male : 1985 Arrival Date: 12/25/2018 Time: 09:17 Bed 7 Private MD: ED Physician Lino Flores HPI: 12/25 09:29 This 33 yrs old Male presents to ER via Ambulatory with complaints of loreta Headache, High Blood Pressure. 09:29 The patient complains of pain to the top of head, forehead, left frontal area, left loreta side of the back of head, right frontal area and right side of the back of head. The patient describes the headache as constant. Onset: The symptoms/episode began/occurred this morning, today. Associated signs and symptoms: The patient has no apparent associated signs or symptoms. Severity of symptoms: At its worst the pain was mild, moderate, in the emergency department the pain is unchanged. Headache History: Denies prior headaches. The symptoms are alleviated by. Historical: - Allergies: 09:20 No Known Allergies; aa5 - Home Meds: 09:20 hydrocodone-acetaminophen 2.5-500 mg Oral tab 1 tab every 4-6 hours [Active]; meloxicam aa5 Oral [Active]; tizanidine Oral [Active]; - PMHx: 09:20 Back pain; Degenerative disc disease; aa5 - PSHx: 09:20 Right Knee; aa5 - Immunization history:: Adult Immunizations up to date. - Social history:: Smoking status: Patient/guardian denies using tobacco. - Ebola Screening: : No symptoms or risks identified at this time. - Family history:: not pertinent. ROS: 09:29 Constitutional: Negative for fever, chills, and weight loss, Eyes: Negative for injury, loreta pain, redness, and discharge, ENT: Negative for injury, pain, and discharge, Neck: Negative for injury, pain, and swelling, Cardiovascular: Negative for chest pain, palpitations, and edema, Respiratory: Negative for shortness of breath, cough, wheezing, and pleuritic chest pain, Abdomen/GI: Negative for abdominal pain, nausea, vomiting, diarrhea, and constipation, Back: Negative for injury and pain, : Negative for injury, bleeding, discharge, and swelling, MS/Extremity: Negative for injury and deformity, Skin: Negative for injury, rash, and discoloration, Psych: Negative for depression, anxiety, suicide ideation, homicidal ideation, and hallucinations, Allergy/Immunology: Negative for hives, rash, and allergies, Endocrine: Negative for neck swelling, polydipsia, polyuria, polyphagia, and marked weight changes, Hematologic/Lymphatic: Negative for swollen nodes, abnormal bleeding, and unusual bruising. 09:29 Neuro: Positive for headache. Exam: 09:29 Constitutional: This is a well developed, well nourished patient who is awake, alert, loreta and in no acute distress. Head/Face: Normocephalic, atraumatic. Eyes: Pupils equal round and reactive to light, extra-ocular motions intact. Lids and lashes normal. Conjunctiva and sclera are non-icteric and not injected. Cornea within normal limits. Periorbital areas with no swelling, redness, or edema. ENT: Nares patent. No nasal discharge, no septal abnormalities noted. Tympanic membranes are normal and external auditory canals are clear. Oropharynx with no redness, swelling, or masses, exudates, or evidence of obstruction, uvula midline. Mucous membranes moist. Neck: Trachea midline, no thyromegaly or masses palpated, and no cervical lymphadenopathy. Supple, full range of motion without nuchal rigidity, or vertebral point tenderness. No Meningismus. Chest/axilla: Normal chest wall appearance and motion. Nontender with no deformity. No lesions are appreciated. Cardiovascular: Regular rate and rhythm with a normal S1 and S2. No gallops, murmurs, or rubs. Normal PMI, no JVD. No pulse deficits. Respiratory: Lungs have equal breath sounds bilaterally, clear to auscultation and percussion. No rales, rhonchi or wheezes noted. No increased work of breathing, no retractions or nasal flaring. Abdomen/GI: Soft, non-tender, with normal bowel sounds. No distension or tympany. No guarding or rebound. No evidence of tenderness throughout. Back: No spinal tenderness. No costovertebral tenderness. Full range of motion. Male : Normal genitalia with no discharge or lesions. Skin: Warm, dry with normal turgor. Normal color with no rashes, no lesions, and no evidence of cellulitis. MS/ Extremity: Pulses equal, no cyanosis. Neurovascular intact. Full, normal range of motion. Neuro: Awake and alert, GCS 15, oriented to person, place, time, and situation. Cranial nerves II-XII grossly intact. Motor strength 5/5 in all extremities. Sensory grossly intact. Cerebellar exam normal. Normal gait. Psych: Awake, alert, with orientation to person, place and time. Behavior, mood, and affect are within normal limits. Vital Signs: 09:18 BP 167 / 113; Pulse 118; Resp 14 S; Temp 98.8(O); Pulse Ox 96% on R/A; Weight 90.72 kg aa5 (R); Height 5 ft. 10 in. (177.80 cm) (R); Pain 4/10; 09:45 BP 161 / 116; Pulse 113; Resp 16 S; Pulse Ox 98% on R/A; aa5 10:42 BP 153 / 107; Pulse 108; Resp 18 S; Pulse Ox 98% on R/A; aa5 11:12 BP 153 / 97; Pulse 102; Resp 16 S; Pulse Ox 98% on R/A; aa5 12:40 BP 136 / 97; Pulse 67; Resp 16 S; Pulse Ox 98% on R/A; Pain 3/10; aa5 09:18 Body Mass Index 28.70 (90.72 kg, 177.80 cm) aa5 MDM: 09:17 Patient medically screened. [facility] 09:29 Data reviewed: vital signs, nurses notes, lab test result(s), EKG, radiologic studies, loreta plain films. 12/25 09:28 Order name: Basic Metabolic Panel; Complete Time: 10:47 [facility] 12/25 09:28 Order name: CBC with Diff; Complete Time: 10:47 [facility] 12/25 09:28 Order name: LFT's; Complete Time: 10:47 [facility] 12/25 09:28 Order name: Magnesium; Complete Time: 10:47 [facility] 12/25 09:28 Order name: PT-INR; Complete Time: 10:47 [facility] 12/25 09:28 Order name: Troponin (emerg Dept Use Only); Complete Time: 10:47 [facility] 12/25 09:28 Order name: XRAY Chest (1 view); Complete Time: 09:58 [facility] 12/25 10:49 Order name: CT Head Brain wo Cont; Complete Time: 11:47 [facility] 12/25 10:51 Order name: Urine Dipstick--Ancillary (enter results); Complete Time: 11:04 12/25 12:10 Order name: Urine Drug Screen EDMD 12/25 09:28 Order name: EKG; Complete Time: 09:29 [facility] 12/25 09:28 Order name: Cardiac monitoring; Complete Time: 09:30 [facility] 12/25 09:28 Order name: EKG - Nurse/Tech; Complete Time: 09:41 [facility] 12/25 09:28 Order name: IV Saline Lock; Complete Time: 09:41 [facility] 12/25 09:28 Order name: Labs collected and sent; Complete Time: 09:41 [facility] 12/25 09:28 Order name: O2 Per Protocol; Complete Time: 09:30 [facility] 12/25 09:28 Order name: O2 Sat Monitoring; Complete Time: 09:30 [facility] 12/25 09:28 Order name: Urine Dipstick-Ancillary (obtain specimen); Complete Time: 10:41 [facility] 12/25 11:44 Order name: Diet Regular; Complete Time: 11:44 ss Administered Medications: 09:30 Drug: NS 0.9% 500 ml Route: IV; Rate: bolus; Site: right antecubital; aa5 10:00 Follow up: IV Status: Completed infusion; IV Intake: 500ml aa5 10:52 Drug: Lisinopril 20 mg Route: PO; aa5 11:45 Follow up: Response: No adverse reaction aa5 10:52 Drug: Tylenol 1000 mg Route: PO; aa5 11:45 Follow up: Response: No adverse reaction aa5 12:11 Drug: Aspirin Chewable Tablet 324 mg Route: PO; ph 12:45 Follow up: Response: No adverse reaction aa5 12:11 Drug: Lopressor 5 mg Route: IVP; Site: right antecubital; ph 12:18 Follow up: Response: No adverse reaction aa5 12:11 Drug: Lopressor 25 mg Route: PO; ph 12:45 Follow up: Response: No adverse reaction aa5 12:45 Drug: morphine 2 mg Route: IVP; Site: right antecubital; aa5 13:30 Follow up: Response: No adverse reaction; Pain is decreased aa5 12:45 Drug: Zofran 4 mg Route: IVP; Site: right antecubital; aa5 12:50 Follow up: Response: No adverse reaction aa5 Disposition: 12/25/18 11:54 Hospitalization ordered by Shaina Quan for Observation. Preliminary diagnosis are Essential (primary) hypertension, Chest pain, unspecified, Tachycardia, unspecified. - Bed requested for Telemetry/MedSurg (observation). - Status is Observation. aa5 - Condition is Fair. - Problem is new. - Symptoms have improved. UTI on Admission? No Signatures: Dispatcher [employer] EDMS RosauraJoanna sanderson Lino Smith MD MD cha Calderon, Audri, RN RN aa5 Dinora Loco RN RN ph Corrections: (The following items were deleted from the chart) 11:46 11:05 12/25/2018 11:05 Discharged to Home. Impression: Essential (primary) loreta hypertension. Condition is Stable. Forms are Medication Reconciliation Form, Thank You Letter, Antibiotic Education, Prescription Opioid Use. Follow up: Private Physician; When: 2 - 3 days; Reason: Recheck today's complaints, Continuance of care, Re-evaluation by your physician. Follow up: Royer Quarles; When: 2 - 3 days; Reason: Recheck today's complaints, Continuance of care, Re-evaluation by your physician. Problem is new. Symptoms have improved. [facility] 12:27 11:54 Hospitalization Ordered by Shaina Quan MD for Observation. Preliminary bd diagnosis is Essential (primary) hypertension; Chest pain, unspecified; Tachycardia, unspecified. Bed requested for Telemetry/MedSurg (observation). Status is Observation. Condition is Fair. Problem is new. Symptoms have improved. UTI on Admission? No. loreta 13:31 12:27 12/25/2018 11:54 Hospitalization Ordered by Shaina Quan MD for Observation. aa5 Preliminary diagnosis is Essential (primary) hypertension; Chest pain, unspecified; Tachycardia, unspecified. Bed requested for Telemetry/MedSurg (observation). Status is Observation. Condition is Fair. Problem is new. Symptoms have improved. UTI on Admission? No. bd
[2018-12-25] MEDS ORDERED: METOPROLOL TAR 25 MG TAB ONE (11:59)
[2018-12-25] MEDS ORDERED: METOPROLOL TARTRATE 5 MG/5 ML INJ IV ONE (11:59)
[2018-12-25] MEDS ORDERED: ASPIRIN 81 MG CHEWABLE TABLET ONE (11:59)
[2018-12-25] MEDS ORDERED: ONDANSETRON 4 MG/2 ML VIAL ONE (12:46)
[2018-12-25] MEDS ORDERED: MORPHINE 2 MG/ML SYR ONE (12:46)
[2018-12-25 13:15] LABS: Barbiturates NEGATIVE (NEGATIVE); Benzodiazepines NEGATIVE (NEGATIVE); Cocaine NEGATIVE (NEGATIVE); METHAMPHETAM NEGATIVE (NEGATIVE); Methadone NEGATIVE (NEGATIVE); Opiates NEGATIVE (NEGATIVE); Phencyclidine NEGATIVE (NEGATIVE); THC Cannibis NEGATIVE (NEGATIVE)
[2018-12-25] MEDS ORDERED: ONDANSETRON 4 MG/2 ML VIAL IV PRN (13:43)
[2018-12-25 13:53] VITALS: BMI 28.7
[2018-12-25 14:04] LABS: Urine Appearance CLEAR; Urine Bilirubin NEGATIVE (NEG); Urine Blood NEGATIVE (NEG); Urine Color YELLOW; Urine Glucose NEGATIVE (NEG); Urine Protein NEGATIVE (NEG); Urine Urobilinogen 0.2 mg/dL (0.2-1.0)
[2018-12-25 14:05] LABS: Urine Microscopic Reflex NO UMIC
[2018-12-25] MEDS ORDERED: HYDRALAZINE HCL 20 MG/ML VIAL IV PRN (14:26)
[2018-12-25] MEDS ORDERED: LISINOPRIL 5 MG TAB PO SCH (15:00)
--- NOTE | 2018-12-25 16:14 | P.HP ---
Certification for Inpatient Patient admitted to: Observation With expected LOS: <2 Midnights Patient will require the following post-hospital care: None Practitioner: I am a practitioner with admitting privileges, knowledge of patient current condition, hospital course, and medical plan of care. Services: Services provided to patient in accordance with Admission requirements found in Title 42 Section 412.3 of the Code of Federal Regulations Patient History Date of Service: 12/25/18 Primary Care Provider: NONE Reason for admission: HTN urgency Allergies No Known Allergies Allergy (Unverified 12/25/18 13:43) Home Medications: Hydrocodone 10/APAP 325 [Lane 10/325] 1 tab PO TID 12/25/18 Meloxicam [Mobic] 7.5 mg PO DAILY 12/25/18 Tizanidine [Zanaflex] 4 mg PO BID 12/25/18 - Past Medical/Surgical History Has patient received pneumonia vaccine in the past: No Diabetic: No -: hypertension -: degeneritive disc in back - Social History Smoking Status: Never smoker Counseled patient to stop smoking for: more than 10 minutes Smoking therapy provided: Yes Patient receptive to therapy: Yes Alcohol use: No CD- Drugs: No Caffeine use: Yes Place of Residence: Home Review of Systems 10-point ROS is otherwise unremarkable Physical Examination - Vital Signs Temperature: 98.8 F Blood Pressure: 158/102 Pulse: 74 Respirations: 16 - Physical Exam General: Alert, In no apparent distress HEENT: Atraumatic, PERRLA, Mucous membr. moist/pink, EOMI, Sclerae nonicteric Neck: Supple, 2+ carotid pulse no bruit, No LAD, Without JVD or thyroid abnormality Respiratory: Clear to auscultation bilaterally, Normal air movement Cardiovascular: Regular rate/rhythm, Normal S1 S2 Gastrointestinal: Normal bowel sounds, No tenderness Musculoskeletal: No tenderness Integumentary: No rashes Neurological: Normal speech, Normal tone Lymphatics: No axilla or inguinal lymphadenopathy - Studies Laboratory Data (last 24 hrs) 12/25/18 09:28: PT 11.7, INR 0.99 12/25/18 09:28: WBC 6.4, Hgb 14.0, Hct 42.0, Plt Count 335 12/25/18 09:28: Sodium 142, Potassium 3.9, BUN 12, Creatinine 1.19, Glucose 169 H, Magnesium 1.8, Total Bilirubin 0.3, AST 25, ALT 57, Alkaline Phosphatase 84 Assessment and Plan - Problems (Diagnosis) (1) Hypertensive urgency Current Visit: Yes Status: Acute Plan: Hypertensive urgency with headache and chest pain -patient currently does not have a diagnosis of high blood pressure however his blood pressure in the ER was 168/112 -started on lisinopril 10 mg daily -hydralazine p.r.n. at this time as well -headache and chest pain has resolved since coming to the ER -will get echocardiogram done here in the hospital -head CT is negative for any acute abnormality -will monitor patient closely here in the hospital. - Plan Admit patient to the medical-surgical floor for hypertensive urgency Discharge Plan: Home Plan to discharge in: Greater than 2 days - Advance Directives Does patient have a Living Will: No Does patient have a Durable POA for Healthcare: No - Code Status/Comfort Care Code Status Assessed: Yes Critical Care: No
[2018-12-25] MEDS ORDERED: MAGNESIUM SULFATE 1 gm IVPB 1 GM/100 ML BAG IV ONE (19:33)
[2018-12-25] MEDS ORDERED: POTASSIUM CL SA 10 MEQ TAB PO ONE (19:33)
[2018-12-25] MEDS: LISINOPRIL 10 MG TAB PO SCH (21:17)
[2018-12-25] MEDS: HYDROCODONE/APAP 10/325 TAB PO SCH (21:18)
[2018-12-26 03:55] VITALS: O2SAT 97
[2018-12-26 05:42] LABS: Absolute Lymphocytes (CBC) 3.8 K/uL (0.7-4.9); Basophils % 0.3 % (0-1.3); Hematocrit 42.9 % (39.6-49.0); Lymphocytes % 52.9 % (15.3-44.8); MPV 8.4 fL (7.6-11.3); RBC Red Blood Cell Count 5.35 M/uL (4.33-5.43)
[2018-12-26] MEDS ORDERED: METOPROLOL XL 25 MG TAB PO SCH (06:00)
[2018-12-26 06:02] LABS: Albumin 3.8 g/dL (3.4-5.0); Bilirubin Total 0.4 mg/dL (0.2-1.0); Magnesium 2.4 mg/dL (1.8-2.4); Phosphorus 4.7 mg/dL (2.5-4.9)
[2018-12-26 08:06] VITALS: BP 132/76
[2018-12-26 08:23] VITALS: TEMP 97.1
[2018-12-26] MEDS: HYDROCODONE/APAP 10/325 TAB PO SCH (08:59)
[2018-12-26] MEDS: LISINOPRIL 10 MG TAB PO SCH (08:59)
[2018-12-26] MEDS ORDERED: ENOXAPARIN 40 MG/0.4 ML SQ SCH (09:00)
--- NOTE | 2018-12-26 12:44 | ECHO ---
HEIGHT: 5 ft 10 in WEIGHT: 200 lb 0 oz DATE OF STUDY: 12/26/[address]: Shaina Quan MD 2-DIMENSIONAL: YES M.MODE: YES DOPPLER: YES COLOR FLOW: YES TDS: PORTABLE: DEFINITY: BUBBLE STUDY: DIAGNOSIS: CHEST PAIN CARDIAC HISTORY: CATHERIZATION: NO SURGERY: NO PROSTHETIC VALVE: NO PACEMAKER: NO MEASUREMENTS (cm) DIASTOLIC (NORMALS) SYSTOLIC (NORMALS) IVSd 1.0 (0.6-1.2) LA Diam 2.8 (1.9-4.0) LVEF 60% LVIDd 2.7 (3.5-5.7) LVIDs 1.9 (2.0-3.5) %FS 30% LVPWd 0.9 (0.6-1.2) Ao Diam 3.1 (2.0-3.7) 2 DIMENSIONAL ASSESSMENT: RIGHT ATRIUM: NORMAL LEFT ATRIUM: NORMAL RIGHT VENTRICLE: NORMAL LEFT VENTRICLE: NORMAL TRICUSPID VALVE: NORMAL MITRAL VALVE: NORMAL PULMONIC VALVE: NORMAL AORTIC VALVE: NORMAL PERICARDIAL EFFUSION: NONE AORTIC ROOT: NORMAL LEFT VENTRICULAR WALL MOTION: NORMAL DOPPLER/COLOR FLOW: NORMAL COMMENTS: NORMAL 2-DIMENSIONAL ECHOCARDIOGRAM WITH DOPPLER. TECHNOLOGIST: TORREY LAWLER
--- NOTE | 2018-12-26 13:21 | P.DS ---
Admission Date: 12/25/18 Discharge Date: 12/26/18 Primary Care Provider: NONE Disposition: ROUTINE DISCHARGE Discharge Condition: GOOD Reason for Admission: HTN urgency - Problems (1) Hypertensive urgency Status: Acute Hospital Course: Overall during the hospital stay patient main stable Patient was initially admitted to the hospital for hypertensive urgency. Echocardiogram was done here in the hospital. Patient was also ruled out for ACS. Patient was started on lisinopril 10 mg daily along with metoprolol. After which his blood pressure did did improve markedly here in the hospital. At that time patient still under stable condition was asked to follow up with primary care provider about 1-2 days post discharge. Patient demonstrate understanding and thus was discharged home under stable condition Vital Signs/Physical Exam: Temp Pulse Resp BP Pulse Ox 97.1 F 70 19 132/76 96 12/26/18 08:00 12/26/18 08:59 12/26/18 09:59 12/26/18 08:59 12/26/18 09:59 General: Alert, In no apparent distress HEENT: Atraumatic, PERRLA, EOMI Neck: Supple, JVD not distended Respiratory: Clear to auscultation bilaterally, Normal air movement Cardiovascular: Regular rate/rhythm, Normal S1 S2 Gastrointestinal: Normal bowel sounds, No tenderness Musculoskeletal: No tenderness Integumentary: No rashes Neurological: Normal speech, Normal tone, Normal affect Lymphatics: No axilla or inguinal lymphadenopathy Laboratory Data at Discharge: WBC 7.1 K/uL (4.3-10.9) 12/26/18 05:15 Hgb 14.4 g/dL (13.6-17.9) 12/26/18 05:15 Hct 42.9 % (39.6-49.0) 12/26/18 05:15 Plt Count 336 K/uL (152-406) 12/26/18 05:15 PT 11.7 SECONDS (9.5-12.5) 12/25/18 09:28 INR 0.99 12/25/18 09:28 Sodium 140 mmol/L (136-145) 12/26/18 05:15 Potassium 5.0 mmol/L (3.5-5.1) 12/26/18 05:15 BUN 13 mg/dL (7-18) 12/26/18 05:15 Creatinine 1.26 mg/dL (0.55-1.3) 12/26/18 05:15 Glucose 116 mg/dL (74-106) H 12/26/18 05:15 Phosphorus 4.7 mg/dL (2.5-4.9) 12/26/18 05:15 Magnesium 2.4 mg/dL (1.8-2.4) D 12/26/18 05:15 Total Bilirubin 0.4 mg/dL (0.2-1.0) 12/26/18 05:15 AST 26 U/L (15-37) 12/26/18 05:15 ALT 51 U/L (12-78) 12/26/18 05:15 Alkaline Phosphatase 75 U/L (45-117) 12/26/18 05:15 Home Medications: Hydrocodone 10/APAP 325 [[place] 103[address]*] 1 tab PO TID 12/25/18 Meloxicam [Mobic*] 7.5 mg PO DAILY 12/25/18 Tizanidine [Zanaflex*] 4 mg PO BID 12/25/18 Lisinopril [Prinivil*] 10 mg PO DAILY #30 tab 12/26/18 Metoprolol Succinate [Toprol Xl*] 12.5 mg PO [id number] #30 tab 12/26/18 New Medications: Lisinopril [Prinivil*] 10 mg PO DAILY #30 tab Metoprolol Succinate [Toprol Xl*] 12.5 mg PO [id number] #30 tab Diet: Regular Activity: Ad shellie Followup: Royer Quarles MD [ACTIVE - CAN ADMIT] - 1 Week
== END 2018-12-26 12:07 | disposition home or self-care (01) ==
LOC: ER 09:13 → ERHOLD 12:07 → 2ND 13:26
PROVIDERS: ADMIT Family Medicine; ATTEND Family Medicine
DX: I16.0 Hypertensive urgency (principal)
CPT/HCPCS: 93005; 93306; 85025 ×2; 80048; 36415; 83735 ×2; 84100; 85610; 80076; 80307 ×8; 81003 ×2; 84484; 80053; 70450; 71045; 96375; 96374; 99285; J1650; J3475; J2270; J7040; J2405; G0378 ×3

== ENCOUNTER 2020-09-23 18:01 | Emergency (ER) | payer BC, OTHER ==
--- OUTSIDE RECORDS SUMMARY | 2020-09-23 18:04 | XMS REPORT | Continuity of Care Document ---
:1985 Author Organization [facility] t Address [address] [place] [address] Care Team Providers Name Role Phone Lab, Abbe Pob I Attending Clinician Unavailable Problems This patient has no known problems. Allergies, Adverse Reactions, Alerts This patient has no known allergies or adverse reactions. Medications This patient has no known medications. Procedures This patient has no known procedures. Encounters Start End Encounter Admission Attending Care Care Encounter Source Date/Time Date/Time Type Type Clinicians Facility Department ID 2020-09-22 2020-09-22 Laboratory Lab, [facility] [id number] 16:24:25 16:44:25 Only Fam Pob I [facility] [id number] [place] [id number] [place] [phone] [address] Results This patient has no known results.
--- NOTE | 2020-09-23 19:10 | RAD REPORT ---
EXAM DESCRIPTION: RAD - Chest Pa And Lat (2 Views) - 09/23/2020 7:04 pm CLINICAL HISTORY: COUGH COMPARISON: Chest Single View dated 12/25/2018; Chest Pa And Lat (2 Views) dated 03/02/2018 FINDINGS: No evidence of edema or pneumonia. The heart size is within normal limits.No acute osseous abnormality. No significant pleural effusions or pneumothorax. IMPRESSION: No acute cardiopulmonary disease.
[2020-09-23] MEDS ORDERED: METHYLPREDNISOLONE 125 MG INJ ONE (20:09)
--- NOTE | 2020-09-23 20:20 | EDPHYS ---
Physician Documentation [facility] Name: Leroy Andersen Age: 34 yrs Sex: Male : 1985 Arrival Date: 09/23/2020 Time: 18:01 Bed 11 Private MD: James Padilla E ED Physician Will Qureshi HPI: 09/23 21:33 This 34 yrs old Male presents to ER via Ambulatory with complaints of kb Shortness Of Breath, Breathing Difficulty, covid symptoms. 21:33 The patient or guardian reports cough, that is intermittent, described as moderate, kb difficulty breathing, flu symptoms, low-grade fever. Onset: The symptoms/episode began/occurred 4 day(s) ago. Severity of symptoms: At their worst the symptoms were moderate, in the emergency department the symptoms are unchanged. Modifying factors: The symptoms are alleviated by nothing, the symptoms are aggravated by nothing. Associated signs and symptoms: Pertinent positives: fever, Pertinent negatives: chest pain, diarrhea, ear ache, nausea, rhinorrhea, sore throat, vomiting. The patient has not experienced similar symptoms in the past. The patient has been recently seen by a physician: the ER physician, out of Town. Patient reports cough shortness of breath and fever for 4 days. Used albuterol nebulizer just prior to arrival without relief. Historical: - Allergies: 18:45 No Known Allergies; kg - Home Meds: 18:45 lisinopril 20 mg Oral tab 1 tab once daily [Active]; kg - PMHx: 18:46 ADD; Hypertensive disorder; kg - PSHx: 18:46 Right knee sx; kg - Immunization history:: Adult Immunizations not up to date, Client reports having NOT received the Covid vaccine. - Social history:: Smoking status: Patient denies any tobacco usage or history of. Patient uses alcohol, occasionally. ROS: 21:34 Abdomen/GI: Negative for abdominal pain, nausea, vomiting, diarrhea, and constipation. kb 21:34 Constitutional: Positive for fever, malaise, Negative for body aches, chills, fatigue, poor PO intake, weight loss. 21:34 Respiratory: Positive for cough, shortness of breath, Negative for dyspnea on exertion, hemoptysis, orthopnea, pleurisy, sputum production, wheezing. 21:34 All other systems are negative. Exam: 21:34 Constitutional: This is a well developed, well nourished patient who is awake, alert, kb and in no acute distress. Head/Face: Normocephalic, atraumatic. ENT: Moist Mucous membranes Cardiovascular: Regular rate and rhythm with a normal S1 and S2. No gallops, murmurs, or rubs. No pulse deficits. Abdomen/GI: Soft, non-tender. No distention Skin: Warm, dry with normal turgor. Normal color. MS/ Extremity: Pulses equal, no cyanosis. Neurovascular intact. Full, normal range of motion. Neuro: Awake and alert, GCS 15, oriented to person, place, time, and situation. Moves all extremities. Normal gait. Psych: Awake, alert, with orientation to person, place and time. Behavior, mood, and affect are within normal limits. 21:34 Respiratory: the patient does not display signs of respiratory distress, Respirations: normal, Breath sounds: + upper airway congestion. Vital Signs: 18:43 BP 148 / 106; Pulse 123; Resp 21; Temp 99.2; Pulse Ox 99% ; Weight 88 kg; Height 70 in. kg (177.80 cm); Pain 0/10; 20:15 BP 145 / 105; em 20:37 Pulse 99; Resp 20; Pulse Ox 99% on R/A; em 18:43 Body Mass Index 27.84 (88.00 kg, 177.80 cm) kg MDM: 18:52 Patient medically screened. kb 20:16 Data reviewed: vital signs, nurses notes. Data interpreted: Pulse oximetry: on room air kb is 99 %. Interpretation: normal. Counseling: I had a detailed discussion with the patient and/or guardian regarding: the historical points, exam findings, and any diagnostic results supporting the discharge/admit diagnosis, lab results, radiology results, the need for outpatient follow up, a family practitioner, to return to the emergency department if symptoms worsen or persist or if there are any questions or concerns that arise at home. 09/23 18:50 Order name: Flu; Complete Time: 19:25 kg 09/23 18:50 Order name: XRAY Chest Pa And Lat (2 Views); Complete Time: 19:25 kg 09/23 20:12 Order name: SARS-COV-2 RT PCR; Complete Time: 20:16 EDMS 09/23 20:16 Order name: Vital Signs; Complete Time: 20:26 kb Administered Medications: 19:50 Drug: SOLU-Medrol (methylPREDNISolone sodium succinate) 125 mg Route: IM; Site: right em gluteus; 20:26 Follow up: Response: No adverse reaction em 20:36 Drug: Lisinopril 20 mg Route: PO; em 20:36 Drug: Zithromax (azithromycin) 500 mg Route: PO; em Disposition Summary: 09/23/20 20:19 Discharge Ordered Location: Home kb Condition: Stable kb Diagnosis - Acute bronchitis, unspecified kb Followup: kb - With: Emergency Department - When: As needed - Reason: Worsening of condition Followup: kb - With: Private Physician - When: 2 - 3 days - Reason: Recheck today's complaints, Continuance of care, Re-evaluation by your physician Discharge Instructions: - Discharge Summary Sheet kb - Acute Bronchitis, Adult, [id number] kb Forms: - Medication Reconciliation Form kb - Thank You Letter kb - Antibiotic Education kb - Prescription Opioid Use kb Prescriptions: - albuterol sulfate 90 mcg/actuation Inhalation HFA aerosol inhaler - inhale 2 puff by INHALATION route every 4-6 hours As needed; 1 Inhaler; kb Refills: 0, Product Selection Permitted - Prednisone 20 mg Oral Tablet - take 1 tablet by ORAL route once daily for 5 days; 5 tablet; Refills: 0, kb Product Selection Permitted - Zithromax 500 mg Oral Tablet - take 1 tablet by ORAL route once daily for 5 days; 5 tablet; Refills: 0, kb Product Selection Permitted Signatures: Dispatcher [employer] Lucy Hernandes, CHENTE-Dixie ELDRIDGE-Jaime Patrick, XOCHILT RN Lorrie Weber RN RN kg Corrections: (The following items were deleted from the chart) 19:19 18:50 CORONAVIRUS+[id number] ordered. KRISTOPHER SUMMERS
--- NOTE | 2020-09-23 20:20 | ER ---
Nurse's Notes [facility] Name: Leroy Andersen Age: 34 yrs Sex: Male : 1985 Arrival Date: 09/23/2020 Time: 18:01 Bed 11 Private MD: James Padilla E Diagnosis: Acute bronchitis, unspecified Presentation: 09/23 18:43 Chief complaint: Patient states: SOB, productive cough, fever x 4 days. Coronavirus kg screen: Client denies travel out of the [place] in the last 14 days. At this time, unable to obtain information related to travel outside the [place] At this time, the client does not indicate any symptoms associated with coronavirus-19. Coronavirus screen: Client presents with at least one sign or symptom that may indicate coronavirus-19. Standard/surgical mask placed on the client. Provider contacted for isolation considerations. Ebola Screen: Patient negative for fever greater than or equal to 101.5 degrees Fahrenheit, and additional compatible Ebola Virus Disease symptoms Patient denies exposure to infectious person. Patient denies travel to an Ebola-affected area in the 21 days before illness onset. No symptoms or risks identified at this time. Initial Sepsis Screen: Does the patient meet any 2 criteria? No. Patient's initial sepsis screen is negative. Does the patient have a suspected source of infection? No. Patient's initial sepsis screen is negative. Risk Assessment: Do you want to hurt yourself or someone else? Patient reports no desire to harm self or others. Onset of symptoms was September 19, 2020. 18:43 Method Of Arrival: Ambulatory kg 18:43 Acuity: CHERYL 3 kg Triage Assessment: 18:46 General: Appears in no apparent distress. Behavior is calm, cooperative, appropriate kg for age, quiet. Pain: Denies pain. Respiratory: Reports shortness of breath at rest on exertion cough that is productive, the patient has mild shortness of breath. Historical: - Allergies: 18:45 No Known Allergies; kg - Home Meds: 18:45 lisinopril 20 mg Oral tab 1 tab once daily [Active]; kg - PMHx: 18:46 ADD; Hypertensive disorder; kg - PSHx: 18:46 Right knee sx; kg - Immunization history:: Adult Immunizations not up to date, Client reports having NOT received the Covid vaccine. - Social history:: Smoking status: Patient denies any tobacco usage or history of. Patient uses alcohol, occasionally. Screenin:15 Abuse screen: Denies threats or abuse. Nutritional screening: No deficits noted. em Tuberculosis screening: No symptoms or risk factors identified. Fall Risk None identified. Assessment: 19:30 General: Appears in no apparent distress. comfortable, Behavior is calm, cooperative, em appropriate for age, Reports fever for 2-3 days. Pain: Denies pain. Neuro: Level of Consciousness is awake, alert, obeys commands, Oriented to person, place, time, situation, Appropriate for age. Cardiovascular: Rhythm is regular. Respiratory: Reports cough that is Airway is patent Respiratory effort is even, unlabored. Derm: Skin is intact, is healthy with good turgor, Skin is pink, warm \T\ dry. Musculoskeletal: Capillary refill < 3 seconds, Range of motion: intact in all extremities. Vital Signs: 18:43 BP 148 / 106; Pulse 123; Resp 21; Temp 99.2; Pulse Ox 99% ; Weight 88 kg; Height 70 in. kg (177.80 cm); Pain 0/10; 20:15 BP 145 / 105; em 20:37 Pulse 99; Resp 20; Pulse Ox 99% on R/A; em 18:43 Body Mass Index 27.84 (88.00 kg, 177.80 cm) kg ED Course: 18:01 Patient arrived in ED. am2 18:02 James Padilla MD is Private Physician. am2 18:45 Triage completed. kg 18:46 Arm band placed on right wrist. kg 18:52 Lucy Esteban FNP-C [facility] kb 18:52 Will Qureshi MD is Attending Physician. kb 19:02 XRAY Chest Pa And Lat (2 Views) In Process Unspecified. EDMS 19:15 Jaime Bullard, RN is Primary Nurse. em 20:15 Patient has correct armband on for positive identification. em 20:40 No provider procedures requiring assistance completed. Patient did not have IV access em during this emergency room visit. Administered Medications: 19:50 Drug: SOLU-Medrol (methylPREDNISolone sodium succinate) 125 mg Route: IM; Site: right em gluteus; 20:26 Follow up: Response: No adverse reaction em 20:36 Drug: Lisinopril 20 mg Route: PO; em 20:36 Drug: Zithromax (azithromycin) 500 mg Route: PO; em Outcome: 20:19 Discharge ordered by . kb 20:40 Discharged to home ambulatory. em 20:40 Condition: stable 20:40 Discharge instructions given to patient, Instructed on discharge instructions, follow up and referral plans. medication usage, Demonstrated understanding of instructions, follow-up care, medications, Prescriptions given X 3. 20:41 Patient left the ED. em Signatures: Dispatcher [employer] Lucy Hernandes, MOONER-C MOONER-Jaime Patrick, RN RN Alicia Ferrari am2 Lorrie Fregoso, RN RN kg
[2020-09-23] MEDS ORDERED: lisinopriL 20 MG TAB ONE (20:48)
[2020-09-23] MEDS ORDERED: AZITHROMYCIN 250 MG TAB ONE (20:54)
[2020-09-24 15:17] VITALS: TEMP 99.2; O2SAT 99
[2020-09-24 15:18] VITALS: BP 145/105
== END 2020-09-23 20:41 | disposition home or self-care (01) ==
LOC: ER 18:01
DX: J20.9 Acute bronchitis, unspecified (principal); Z20.822 Contact with and (suspected) exposure to COVID-19; I10 Essential (primary) hypertension
CPT/HCPCS: 87804 ×2; 71046; 96372; 99283; U0003; J2930

== ENCOUNTER → 2023-02-19 | Emergency (ER) | payer OTHER ==
[~2023-02-19] MED LIST: CYCLOBENZAPRINE 10 MG TAB ONE; DIAZEPAM 5 MG TABLET ONE; KETOROLAC 30 MG/ML INJ ONE; MORPHINE 4 MG/ML SYR ONE; ONDANSETRON 4 MG/2 ML VIAL ONE; dexAMETHasone 10 MG/ML VIAL ONE
--- OUTSIDE RECORDS SUMMARY | 2023-02-19 06:56 | XMS REPORT | Continuity of Care Document ---
Author Name Unknown Address [address] [place] [address] [facility] thconnect Address [address] [place] [address] Care Team Providers Care Combination Presser Name Role Phone DIONISIO REHMAN Attending Clinician Unavailable Lab, Adc Fam Pob I Attending Clinician Unavailab Dionisio Tirado PA-C Attending Clinician [phone] Payers Payer Name Policy Type Policy Number Effective Date Expirati on Date Source [facility] [id number] 2016 00:00:00 Allergies, Adverse Reactions, Alerts Allergy Name Allergy Type Status Severity Reaction(s) Onset Date Inactive Date Treating Clinician Comments Source NO KNOWN ALLERGIE S Drug Class Active [facility] Social History Social Habit Start Date Stop Date Quantity Comments Source Exposure to SARS-CoV-2 (event) Yes [facility] Sex Assigned At 1985 00:00:00 1985 00:00:00 [facility] Smoking Status Start Date Stop Date Source Unknown if ever smoked [facility] Encounters Start Date/Time End Date/Time Encounter Type Admission Type Attending Clinicians Care Facility Care Department Encounter ID Source 2020-09-22 17:00:00 2020-09-22 17:00:00 Outpatient [facility] [id number] [facility] 2020-09-22 17:00:00 2020-09-22 17:00:00 Outpatient DIONISIO ULRICH [facility] [id number] [facility] 2020-09-22 16:24:25 2020-09-22 16:44:25 Laboratory Only Lab, [facility] Vasileb I Dionisio Rehman [facility] [address] .[id number] [facility] 2020-09-22 16:24:25 2020-09-22 16:44:25 Laboratory Only Lab, [facility] [address] ..[id number]
[2023-02-19 08:07] LABS: Absolute Lymphocytes (CBC) 2.5 K/uL (0.7-4.9); Hematocrit 49.2 % (39.6-49.0); Lymphocytes % 45.2 % (15.3-44.8); MCV 88.4 fL (80-100); MPV 8.1 fL (7.6-11.3); Platelets 305 thou/uL (152-406); RBC Red Blood Cell Count 5.57 M/uL (4.33-5.43)
[2023-02-19 08:16] LABS: Specific Gravity 1.022 (1.005-1.030); Urine Bacteria None Seen /HPF (<20); Urine Bilirubin NEGATIVE (Negative); Urine Blood Negative (Negative); Urine Clarity Clear (Clear); Urine Color Light-Yellow (Yellow); Urine Glucose NEGATIVE (Negative); Urine Mucus Slight /HPF (None Seen); Urine Protein NEGATIVE (Negative); Urine RBC <5 /HPF (None Seen); Urine Urobilinogen Normal (Normal); Urine pH 5.5 (5.0-7.0)
[2023-02-19 08:25] LABS: Bilirubin Total 0.5 mg/dL (0.2-1.0); Potassium 3.9 mEq/L (3.5-5.1); Protein, Total 7.5 g/dL (6.4-8.2)
--- NOTE | 2023-02-19 09:05 | RAD REPORT ---
EXAM DESCRIPTION: CT - Abdomen Pelvis Wo Contrast - 02/19/2023 7:55 am CLINICAL HISTORY: l flank pain COMPARISON: Abdomen Pelvis W Contrast dated 11/15/2018 TECHNIQUE: Thin cut axial CT imaging of the abdomen and pelvis was performed without IV contrast. Mu ltiplanar reformats were generated and reviewed. All CT scans are performed using dose optimization technique as appropriate and may include automated exposure control or mA/KV adjustment according to patient size. FINDINGS: No suspicious findings in the lung bases. The liver, spleen, adrenal glands, and pancreas show no suspicious findings. Gallbladder and biliary tree are also without suspicious finding. Symmetric renal contour, without suspicious parenchymal findings within limits of noncontrast techniq ue. No evidence of radiopaque calculi or hydroureteronephrosis. No dilated bowel loops or bowel wall thickening. No free air, free fluid or inflammatory stranding. N o hernia, mass or bulky lymphadenopathy. The urinary bladder is decompressed limiting evaluation, wit hout significant finding. No suspicious bony findings. IMPRESSION: No acute intra-abdominal process.
--- NOTE | 2023-02-19 09:11 | EDPHYS ---
Physician Documentation [facility] Name: Leroy Andersen Age: 37 yrs Sex: Male : 1985 Arrival Date: 02/19/2023 Time: 06:53 Bed 12 Private MD: ED Physician Anthony Shay HPI: 02/19 07:37 This 37 yrs old Male presents to ER via Ambulatory with complaints of Low Back Pain. rt 07:37 Patient with known degenerative disc disease presents to the ED with about 24 hours and rt left-sided back pain radiating downward to the hip. States that this is worse than typical back pain. Reports no discrete injuries. Denies urinary symptoms, denies bowel, bladder incontinence, saddle anesthesia. Denies other acute complaints, symptoms are moderate severity, aching nature, no other aggravating or elevating factors.. Historical: - Allergies: 07:36 No Known Allergies; jl7 - Home Meds: 07:36 Vyvanse oral [Active]; jl7 - PMHx: 07:36 ADD; Back pain; Degenerative disc disease; Hypertensive disorder; jl7 - PSHx: 07:36 right knee sx; jl7 - Immunization history:: Adult Immunizations up to date. - Social history:: Smoking status: Patient denies any tobacco usage or history of. - Family history:: not pertinent. ROS: 07:37 Constitutional: Negative for fever, chills, and weight loss, Cardiovascular: Negative rt for chest pain, palpitations, and edema, Respiratory: Negative for shortness of breath, cough, wheezing, and pleuritic chest pain, Abdomen/GI: Negative for abdominal pain, nausea, vomiting, diarrhea, and constipation, MS/Extremity: Negative for injury and deformity, Skin: Negative for injury, rash, and discoloration, Neuro: Negative for headache, weakness, numbness, tingling, and seizure, Psych: Negative for depression, anxiety, suicide ideation, homicidal ideation, and hallucinations, 07:37 Back: Positive for pain at rest, pain with movement, Exam: 07:37 Constitutional: This is a well developed, well nourished patient who is awake, alert, rt and in no acute distress. Head/Face: Normocephalic, atraumatic. Neck: Trachea midline, no thyromegaly or masses palpated, and no cervical lymphadenopathy. Supple, full range of motion without nuchal rigidity, or vertebral point tenderness. No Meningismus. Chest/axilla: Normal chest wall appearance and motion. Nontender with no deformity. No lesions are appreciated. Cardiovascular: Regular rate and rhythm with a normal S1 and S2. No gallops, murmurs, or rubs. Normal PMI, no JVD. No pulse deficits. Respiratory: Lungs have equal breath sounds bilaterally, clear to auscultation and percussion. No rales, rhonchi or wheezes noted. No increased work of breathing, no retractions or nasal flaring. Abdomen/GI: Soft, non-tender, with normal bowel sounds. No distension or tympany. No guarding or rebound. No evidence of tenderness throughout. Skin: Warm, dry with normal turgor. Normal color with no rashes, no lesions, and no evidence of cellulitis. MS/ Extremity: Pulses equal, no cyanosis. Neurovascular intact. Full, normal range of motion. Neuro: Awake and alert, GCS 15, oriented to person, place, time, and situation. Cranial nerves II-XII grossly intact. Motor strength 5/5 in all extremities. Sensory grossly intact. Cerebellar exam normal. Normal gait. Psych: Awake, alert, with orientation to person, place and time. Behavior, mood, and affect are within normal limits. 07:37 Back: Tenderness to the left lateral paraspinal regions diffusely lumbar region, no other midline tenderness, step-offs, Vital Signs: 07:33 BP 157 / 100; Pulse 103; Resp 17; Temp 98.4; Pulse Ox 100% ; Weight 86.18 kg; Height 5 jl7 ft. 10 in. ; Pain 7/10; 09:00 Pain 6/10; jl7 09:15 BP 135 / 97; Pulse 89; Resp 15; Pulse Ox 100% ; Pain 6/10; jl7 07:33 Body Mass Index 27.26 (86.18 kg, 177.8 cm) jl7 07:33 Pain Scale: Adult jl7 09:00 Pain Scale: Adult jl7 09:15 Pain Scale: Adult jl7 MDM: 07:32 Patient medically screened. rt 09:42 Differential diagnosis: Musculoskeletal back pain, kidney stone, pyelonephritis. Data rt reviewed: vital signs, nurses notes, lab test result(s), radiologic studies. I considered the following discharge prescriptions or medication management in the emergency department Medications were administered in the Emergency Department. See MAR. Independent interpretation of the following test(s) in the Emergency Department CT Scan: My interpretation is No ureteral stone seen on interpretation of CT scan images. Test considered but Not performed: MRI: No red flag symptoms to suggest cauda equina syndrome, spinal epidural abscess, emergent MRIs not indicated. Care significantly affected by the following chronic conditions: Hypertension. Counseling: I had a detailed discussion with the patient and/or guardian regarding the historical points, exam findings, and any diagnostic results supporting the discharge/admit diagnosis, lab results, radiology results, the need for outpatient follow up, to return to the emergency department if symptoms worsen or persist or if there are any questions or concerns that arise at home. Response to treatment: the patient's symptoms have markedly improved after treatment. 02/19 07:37 Order name: CBC with Diff; Complete Time: 08:10 rt 02/19 07:37 Order name: CMP; Complete Time: 08:31 rt 02/19 07:37 Order name: UAM; Complete Time: 08:22 rt 02/19 07:37 Order name: CT Abd/Pelvis - Without Contrast; Complete Time: 09:06 rt Administered Medications: 08:03 Drug: Ketorolac IVP 15 mg IVP once Route: IVP; Site: right antecubital; jl7 08:27 Follow up: Response: No adverse reaction; Pain is unchanged, physician notified jl7 08:03 Drug: Cyclobenzaprine PO 10 mg PO once Route: PO; jl7 08:27 Follow up: Response: No adverse reaction; Pain is unchanged, physician notified jl7 08:27 Drug: morphine IVP or IV 4 mg IVP once over 4 mins Route: IVP; Infused Over: 4 mins; jl7 Site: right antecubital; 09:00 Follow up: Pain 6/10 Adult; Response: No adverse reaction; Pain is decreased jl7 08:27 Drug: Ondansetron IVP 4 mg IVP once; over 2 minutes Route: IVP; Site: right antecubital;jl7 09:12 Follow up: Response: No adverse reaction jl7 09:15 CANCELLED (Other Intervention Used): dexamethasone8 mg IVP once; (not to exceed 40 mg) jl7 09:16 Drug: Dexamethasone IM 8 mg IM once Route: IM; Site: right deltoid; jl7 09:20 Follow up: Response: Medication administered at discharge. jl7 09:19 Drug: Diazepam PO 10 mg PO once Route: PO; jl7 09:20 Follow up: Response: Medication administered at discharge. jl7 Disposition Summary: 02/19/23 09:10 Discharge Ordered Notes: Location: Home rt Condition: Stable rt Diagnosis - Low back pain rt Followup: rt - With: Private Physician - When: 2 - 3 days - Reason: Discharge Instructions: - Discharge Summary Sheet rt - Acute Back Pain, Adult rt Forms: - Medication Reconciliation Form rt - Thank You Letter rt - Antibiotic Education rt - Prescription Opioid Use rt - Patient Portal Instructions rt - Leadership Thank You Letter rt Prescriptions: - Lidoderm 5 % Topical adhesive patch, medicated - apply 1 patch TOPICAL route once leave on most painful area for up to 12 hrs; 5 rt patch; Refills: 0, Product Selection Permitted - Cyclobenzaprine 10 mg Oral tablet - take 1 tablet ORAL route every 8 hours As needed; 15 tablet; Refills: 0, rt Product Selection Permitted - Tramadol 50 mg Oral Tablet - take 1 tablet ORAL route every 8 hours as needed; 12 tablet; Refills: 0, rt Product Selection Permitted - Medrol (Kemal) 4 mg Oral Tablets, Dose Pack - take 1 tablet ORAL route as directed - follow package instructions; 1 packet; rt Refills: 0, Product Selection Permitted Signatures: Dispatcher [employer] Radames Livingston RN RN jl7 Anthony Shay MD MD rt Corrections: (The following items were deleted from the chart) 09:15 09:10 Dexamethasone IVP 8 mg IVP once; (not to exceed 40 mg) ordered. rt 7 09:15 09:15 Dexamethasone IVP 8 mg IVP once; (not to exceed 40 mg) ordered. jl7 jl7
--- NOTE | 2023-02-19 09:11 | ER ---
Nurse's Notes [facility] Name: Leroy Andersen Age: 37 yrs Sex: Male : 1985 Arrival Date: 02/19/2023 Time: 06:53 Bed 12 Private MD: Diagnosis: Low back pain Presentation: 02/19 07:33 Chief complaint: Patient states: Left low back/hip pain, radiates to middle low back, jl7 hx of back pain with disc problems. Reports difficulty ambulating. Coronavirus screen: At this time, the client does not indicate any symptoms associated with coronavirus-19. Ebola Screen: No symptoms or risks identified at this time. Initial Sepsis Screen: Does the patient meet any 2 criteria? No. Patient's initial sepsis screen is negative. Does the patient have a suspected source of infection? No. Patient's initial sepsis screen is negative. Risk Assessment: Do you want to hurt yourself or someone else? Patient reports no desire to harm self or others. Onset of symptoms was February 19, 2023. 07:33 Method Of Arrival: Ambulatory [facility] 07:33 Acuity: CHERYL 4 jl7 Triage Assessment: 07:36 General: Appears in no apparent distress. uncomfortable, Behavior is calm, cooperative, jl7 appropriate for age. Pain: Complains of pain in back Pain currently is 7 out of 10 on a pain scale. Neuro: Level of Consciousness is awake, alert, obeys commands, Oriented to person, place, time, situation, Gait is unsteady, due to pain. Cardiovascular: Patient's skin is warm and dry. Respiratory: Airway is patent Respiratory effort is even, unlabored, Respiratory pattern is regular, symmetrical. : Denies symptoms. Derm: Skin is pink, warm \T\ dry. Historical: - Allergies: 07:36 No Known Allergies; jl7 - Home Meds: 07:36 Vyvanse oral [Active]; jl7 - PMHx: 07:36 ADD; Back pain; Degenerative disc disease; Hypertensive disorder; jl7 - PSHx: 07:36 right knee sx; jl7 - Immunization history:: Adult Immunizations up to date. - Social history:: Smoking status: Patient denies any tobacco usage or history of. - Family history:: not pertinent. Screenin:28 [facility] ED Fall Risk Assessment (Adult) History of falling in the last 3 months, jl7 including since admission No falls in past 3 months (0 pts) Score/Fall Risk Level 0 - 2 = Low Risk Oriented to surroundings, Maintained a safe environment. Abuse screen: Denies threats or abuse. Denies injuries from another. Nutritional screening: No deficits noted. Tuberculosis screening: No symptoms or risk factors identified. Assessment: 08:28 Reassessment: Pt reports no change in pain level, ERD notified, see MAR for orders. jl7 09:15 Reassessment: Pt reports decreased pain level to 6/10, pt appears uncomfortable, jl7 grimacing and guarding. ER notified, see MAR for orders. Vital Signs: 07:33 BP 157 / 100; Pulse 103; Resp 17; Temp 98.4; Pulse Ox 100% ; Weight 86.18 kg; Height 5 jl7 ft. 10 in. ; Pain 7/10; 09:00 Pain 6/10; jl7 09:15 BP 135 / 97; Pulse 89; Resp 15; Pulse Ox 100% ; Pain 6/10; jl7 07:33 Body Mass Index 27.26 (86.18 kg, 177.8 cm) jl7 07:33 Pain Scale: Adult jl7 09:00 Pain Scale: Adult jl7 09:15 Pain Scale: Adult jl7 ED Course: 06:58 Patient arrived in ED. ts1 06:58 Anthony Shay MD is Attending Physician. rt 07:35 Triage completed. jl7 07:36 Arm band placed on right wrist. jl7 07:49 Inserted saline lock: 22 gauge in right forearm, using aseptic technique. Blood ds4 collected. 07:49 Initial lab(s) drawn, by ED staff, sent to lab. jl7 07:57 CT Abd/Pelvis - Without Contrast In Process Unspecified. EDMS 08:02 Radames Farah, [facility] is Primary Nurse. jl7 08:28 Patient has correct armband on for positive identification. Provided Education on: use jl7 of call sellers. 09:15 No provider procedures requiring assistance completed. jl7 09:29 IV discontinued, intact, bleeding controlled, No redness/swelling at site. Pressure jl7 dressing applied. Administered Medications: 08:03 Drug: Ketorolac IVP 15 mg IVP once Route: IVP; Site: right antecubital; jl7 08:27 Follow up: Response: No adverse reaction; Pain is unchanged, physician notified jl7 08:03 Drug: Cyclobenzaprine PO 10 mg PO once Route: PO; jl7 08:27 Follow up: Response: No adverse reaction; Pain is unchanged, physician notified jl7 08:27 Drug: morphine IVP or IV 4 mg IVP once over 4 mins Route: IVP; Infused Over: 4 mins; jl7 Site: right antecubital; 09:00 Follow up: Pain 6/10 Adult; Response: No adverse reaction; Pain is decreased jl7 08:27 Drug: Ondansetron IVP 4 mg IVP once; over 2 minutes Route: IVP; Site: right antecubital;jl7 09:12 Follow up: Response: No adverse reaction jl7 09:15 CANCELLED (Other Intervention Used): dexamethasone8 mg IVP once; (not to exceed 40 mg) jl7 09:16 Drug: Dexamethasone IM 8 mg IM once Route: IM; Site: right deltoid; jl7 09:20 Follow up: Response: Medication administered at discharge. jl7 09:19 Drug: Diazepam PO 10 mg PO once Route: PO; jl7 09:20 Follow up: Response: Medication administered at discharge. jl7 Medication: 08:28 VIS not applicable for this client. jl7 Outcome: 09:10 Discharge ordered by . rt 09:29 Discharged to home ambulatory, with significant other, jl7 09:29 Condition: stable 09:29 Discharge instructions given to patient, Instructed on discharge instructions, follow up and referral plans. medication usage, Demonstrated understanding of instructions, follow-up care, medications, Prescriptions given X 4, 09:29 Patient left the ED. jl7 Signatures: Dispatcher [employer] EDGA Rick Sawant ds4 Radames Farah RN RN jl7 Anthony Shay MD MD rt Megan Pereira PAS PAS ts1 Corrections: (The following items were deleted from the chart) 09:29 09:15 IV discontinued, intact, bleeding controlled, No redness/swelling at site. jl7 Pressure dressing applied, jl7
[2023-02-19 10:33] VITALS: TEMP 98.4; O2SAT 100
[2023-02-19 10:47] VITALS: BP 135/97
== END ==
LOC: ER 06:53
DX: M54.50 Low back pain, unspecified (principal)
CPT/HCPCS: 85025; 81001; 36415; 80053; 74176; 96375; 96372; 96374; 99284; J1100; J2405